=== PATIENT | male | born 1945 | race African-American/Black ===

== ENCOUNTER 2017-02-05 17:09 | Inpatient (IN) | payer MEDICARE ==
[~2017-02-05] VITALS: Ht 177.8 cm; Wt 77.4 kg
[2017-02-05 19:19] LABS: BASOPHILS 0.1 % (0-2); EOSINOPHILS 1.2 % (0-7); HEMATOCRIT 37.1 % (42.0-54.0); HEMOGLOBIN 12.2 g/dL (13.5-17.5); IMMATURE GRANULOCYTES 0.1 % (0-5); LYMPHOCYTES 15.1 % (15-50); MCH 27.9 pg (26.0-34.0); MCHC 32.9 g/dL (31.0-37.0); MCV 84.9 fL (80.0-100.0); MEAN PLATELET VOLUME 9.9 fL (7.4-10.4); MONOCYTES 6.1 % (2-11); NEUTROPHILS 77.4 % (40-80); PLATELET COUNT 163 10x3/uL (130-400); RBC 4.37 10x6/uL (4.20-6.10); RDW 15.3 % (11.5-14.5); WBC 8.5 10x3/uL (4.8-10.8)
[2017-02-05 19:33] LABS: APPEARANCE CLEAR (CLEAR); COLOR YELLOW (YELLOW)
[2017-02-05 19:34] LABS: BILIRUBIN NEGATIVE (NEGATIVE); GLUCOSE NEGATIVE (NEGATIVE); KETONE NEGATIVE (NEGATIVE); LEUKOCYTE ESTERASE NEGATIVE (NEGATIVE); NITRITE NEGATIVE (NEGATIVE); PROTEIN NEGATIVE (NEGATIVE); SPECIFIC GRAVITY 1.015 (1.005-1.020); UROBILINOGEN NORMAL (NORMAL)
[2017-02-05 20:00] LABS: ALBUMIN 3.6 g/dL (3.4-5.0); ANION GAP 16.1 mmol/L (8-16); BILIRUBIN - TOTAL 0.18 mg/dL (0.2-1.3); CALCIUM 8.7 mg/dL (8.5-10.1); CARBON DIOXIDE 26.5 mmol/L (21.0-32.0); CREATININE - SERUM 1.4 mg/dL (0.6-1.3); POTASSIUM - SERUM 4.6 mmol/L (3.5-5.1); PROTEIN - SERUM 7.7 g/dL (6.4-8.2)
[2017-02-05 20:01] LABS: UDS - AMPHET NEGATIVE QUAL (NEGATIVE); UDS - BARB NEGATIVE QUAL (NEGATIVE); UDS - BENZO NEGATIVE QUAL (NEGATIVE); UDS - COCAINE NEGATIVE QUAL (NEGATIVE); UDS - METH NEGATIVE QUAL (NEGATIVE); UDS - OPIATE NEGATIVE QUAL (NEGATIVE); UDS - PCP NEGATIVE QUAL (NEGATIVE); UDS - THC NEGATIVE QUAL (NEGATIVE)
--- NOTE | 2017-02-05 23:13 | NUR ---
NEW ADMIT TO DOCTOR CHEATHAM FROM [facility] EMERGENCY DEPARMENT. PATIENT TRANSPORTED TO [facility] ED FOR CONFUSION. HE HAS NEED ATTENPTING TO WALK AWAY FROM HIS HOME AND GO TO [place]. PATIENTS BROTHER "SARBJIT DIEGO" HAS TEMPORARY GUARDIANSHIP. PATIENT WAS RECIEVED TO ASSISTED IN WHEELCHAIR WITH STAFF AND FAMILY AT HIS SIDE. PATIENT IS VERY RISISTANT. STATIN HE WILL DO NOTHING THAT WE WANT HIM TO DO. REFUSING ASSESSMENTS. REFUSING MEDICATIONS. STATING THAT HE WILL LEAVE HERE ANY WAY THAT HE CAN. EXIT SEEKING. PATIENTS BROTHER SIGNED ALL ADMISSION COSENTS. PATIENT CONTINUES TO BE RESTLESS. ORIENTED TO UNIT. REDIRECT AND REORIENT NEEDED.
[2017-02-05] MEDS ORDERED: COUMADIN5 MG PO (23:53)
[2017-02-05] MEDS ORDERED: ARICEPT10 MG PO (23:53)
[2017-02-05] MEDS ORDERED: DEPAKOTE ER250 MG PO (23:53)
[2017-02-05] MEDS ORDERED: SEROQUEL100 MG PO (23:54)
[2017-02-05] MEDS ORDERED: FOLIC ACID1 MG PO (23:55)
[2017-02-05] MEDS ORDERED: FUROSEMIDE20 MG PO (23:56)
[2017-02-05] MEDS ORDERED: PROTONIX40 MG PO (23:56)
[2017-02-06 07:12] LABS: HEMOGLOBIN A1C 6.2 % (4.8-6.0)
[2017-02-06 07:24] LABS: CHOL - HDL RATIO 2.8 ratio (2.3-4.9); LDL-HDL RATIO 1.7 ratio (1.5-3.5); THYROID STIMULATING HORMONE 1.84 uIU/mL (0.36-3.74); VALPROIC ACID (DEPAKOTE) 35.9 ug/mL (50.0-100.0)
[2017-02-06 11:38] LABS: INR 2.17 (0.85-1.17); PROTIME 24.3 SECONDS (11.6-15.0)
--- NOTE | 2017-02-06 14:28 | NUR ---
PATIENT ROOMING THE HALLWAY. TRYING TO OPEN DOORS TO LEAVE. PATIENT DID TAKE MEDICATIONS FOR THIS NURSE AFTER NURSE EXPLAINED WHAT MEDICATIONS WERE FOR. STATED "I WILL TAKE MY MEDS JUST SO I CAN GET OUT OF HERE."
[2017-02-06 19:15] VITALS: BP 126/70
--- NOTE | 2017-02-06 20:07 | NUR ---
RECEIVED IN DINING AREA. SOCIALIZING WITH PEERS. NEGATIVE STATEMENTS ABOUT BEING IN PRISON. COOPERATIVE WITH VITALS. ENCOURAGE TO EXPRESS NEEDS. CONTINUES TO SOCIALIZE AT TIMES. CONTINUE PLAN OF CARE
[2017-02-06 21:17] VITALS: BMI 21.5
[2017-02-07 06:13] LABS: VITAMIN D 25 HYDROXY 26.1 ng/mL (30.0-100.0)
[2017-02-07 07:24] LABS: RAPID PLASMA REAGIN Non Reactive (Non Reactive)
--- NOTE | 2017-02-07 08:49 | NUR ---
PT ALERT, EATING BREAKFAST. PT AM MEDS ADMINSITERED. PT TOOK MEDS WITHOUT DIFFICULTY. PT DENIES NEEDS. WCTM.
[2017-02-07 10:18] LABS: FOLATE (FOLIC ACID) - SERUM >20.0 ng/mL (>3.0)
[2017-02-07 13:20] VITALS: BMI 21.5
[2017-02-07 18:33] VITALS: BP 127/86
--- NOTE | 2017-02-07 19:39 | NUR ---
RECEIVED IN DAYROOM. WALKING ABOUT DINING AREA. SOCIALIZING WITH PEERS. EXIT SEEKING AT TIMES. CALM AND COOPERATIVE WITH CARE AND ASSESSMENTS. REDIRECT AND REORIENT NEEDED. CONTINUES TO SOCIALIZE WITH PEERS. CONTINUE PLAN OF CARE
[2017-02-07 20:18] VITALS: BP 132/83
--- NOTE | 2017-02-08 04:34 | PN ---
PATIENT:ELIOT DIEGO MEDICAL RECORD: [id number] LOCATION:[facility] ADMISSION DATE: 02/05/17 PROGRESS NOTE DATE OF SERVICE: 02/07/2017 SUBJECTIVE: No new complaint. OBJECTIVE: The patient continually tries to elope and has to be redirected. He gives evidence of significant dementia. Dr. Worrell will be consulted. On exam, mood is euthymic. Affect is very shallow. Speech is terse. Content of thought is negative for overt psychosis. Sensorium shows no change. ASSESSMENT: No change in diagnosis. PLAN: 1. Neuropsychological testing. 2. Continue current medications. 3. Continue supportive therapy. TRANSINT:[id number] Voice Confirmation ID: [id number] DOCUMENT ID: [id number] WENDY LACEY III, MD at 0434 CC: [id number] DICTATION DATE: 02/07/17 1143 PODIATRIC PHYSICIAN: 02/07/17 1749 ADM IN [facility] [address] [place] [address]
--- NOTE | 2017-02-08 07:39 | NUR ---
B) PATIENT IS AWAKE AND ALERT, HE IS QUITE TALKATIVE, HE WANTS HIS COFFEE, THEN HE WANTS A CIGARETTE, THEN A BEER. HE IS RAMBLING ABOUT WALKING HOME. I) PROVIDE PRESCRIBED MEDS. R) PATIENT IS CALM AND COOPERATIVE, BUT HE WANTS TO GP BACK TO BED. P) CONTINUE POC.
[2017-02-08 08:00] VITALS: BP 119/77
--- NOTE | 2017-02-08 12:59 | NUR ---
PATIENT IS INTRUSIVE AND KEEPS TELLING PEOPLE TO "GET OUTTA THAT WHEEL CHAIR, IT'LL MAKE YOU LAZY" HE IS ASKING TO GO HOME AND WANTS COFFEE OR COKES ALL DAY LONG. HE IS EXIT SEEKING AND SITTING BY THE DOOR CURRENTLY.
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
[2017-02-08 19:45] VITALS: BP 121/59
--- NOTE | 2017-02-09 03:28 | NUR ---
B) Patient alert and oriented to self, restless and wandering around the day room, frequently asking for candy and sodas, intrusive with other patients. I) Administered schduled medications, redirected as needed, monitored for safety. R) Medication compliant, mild exit seeking. P) Continue plan of care, continue to monitor.
--- NOTE | 2017-02-09 05:41 | PN ---
PATIENT:ELIOT DIEGO MEDICAL RECORD: [id number] LOCATION:[facility] ADMISSION DATE: 02/05/17 PROGRESS NOTE DATE OF SERVICE: 02/08/2017 SUBJECTIVE: No new complaint. OBJECTIVE: Staff report the patient is very easily agitated. He is intrusive and requires redirection. He continues to exit-seek. On exam, mood is slightly irritable. Affect is very shallow. Speech is somewhat pressured and difficult to understand at times. Content of thought exhibits moderate paranoid delusional ideation. Sensorium shows no improvement. ASSESSMENT: No change in diagnosis. PLAN: 1. Maintain current medication. 2. Continue supportive therapy. TRANSINT:[id number] Voice Confirmation ID: [id number] DOCUMENT ID: [id number] WENDY LACEY III, MD at 0541 CC: [id number] DICTATION DATE: 02/08/17 1239 CHALK EXTRUDING MACHINE OPERATOR: 02/08/172023 ADM IN [facility] [address] [place] [address]
[2017-02-09 07:47] LABS: INR 2.69 (0.85-1.17); PROTIME 28.8 SECONDS (11.6-15.0)
[2017-02-09 08:37] VITALS: BP 121/74
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
--- NOTE | 2017-02-09 16:07 | NUR ---
LATE ENTRY FROM 02/08 SW MET WITH PT'S BROTHER SARBJIT TO DISCUSS PT'S CARE AND DISCHARGE PLANS. PT'S BROTHER VERBALIZED UNDERSTANDING OF CONVERSATION.
[2017-02-09 20:03] VITALS: BP 135/64
--- NOTE | 2017-02-10 01:55 | NUR ---
B) Patient alert and oriented to self, patient states that he is going back to [place] as soon as he gets out here, very confused, wanders at times, frequently asking for candy, sodas, and juice, I) Administered scheduled medications, PRN Ativan .05 mg PO and Haldol 2 mg PO given for anxiety, R) Medication compliant, intrusive with staff at times P) Continue plan of care.
[2017-02-10 15:57] VITALS: BP 135/86
--- NOTE | 2017-02-10 18:22 | NUR ---
PT IS RECEIVED SITTING IN CHAIR NEAR NURSE STATION. PT IS ALERT AND ORIENTED X3. PT DENIES ANXIETY OR DEPRESSION. NO HALLUCINATIONS OR DELUSIONS ARE NOTED OR REPORTED. PT HAS BEEN COOPERATIVE WITH STAFF AND IS COMPLIANT WITH MED'S AND CARE. NO AGGRESSION NOTED. PT HAS BEEN SOCIAL WITH STAFF AND PEERS. PT HAS WANDERED THE COSTELLO'S AND DOES EXIT SEEK AND FREQUENTLY CHECKS DOORS AND WINDOWS LOOKING FOR ANY OPENING. PT IS REDIRECTED NEEDED. SAFETY MEASURES ARE IMPLEMENTED. WILL CONTINUE TO MONITOR AND CONTINUE WITH PLAN OF CARE.
[2017-02-10 19:30] VITALS: BP 174/94
--- NOTE | 2017-02-10 20:20 | PN ---
PATIENT:ELIOT DIEGO MEDICAL RECORD: [id number] LOCATION:[facility] ADMISSION DATE: 02/05/17 PROGRESS NOTE DATE OF SERVICE: 02/09/2017 SUBJECTIVE: No new complaint. OBJECTIVE: The patient is more redirectable. He continues to ask about discharge. On exam, mood is for the most part euthymic. Affect is somewhat brittle. Speech is tangential and at times pressured. Content of thought is negative for clear cut psychosis. Sensorium shows no change. ASSESSMENT: No change in diagnosis. PLAN: 1. Neuropsychological testing today. 2. Continue current medications. 3. Continue supportive therapy. TRANSINT:[id number] Voice Confirmation ID: [id number] DOCUMENT ID: [id number] WENDY LACEY III, MD at 2020 CC: [id number] DICTATION DATE: 02/09/17 1141 HSE MANAGER: 02/09/17 1903 ADM IN [facility] [address] [place] [address]
--- NOTE | 2017-02-11 03:40 | NUR ---
B) Patient alert and oriented to self, wanders at times, mild exit seeking, intrusive and attention seeking, frequently asking for candy, sodas , or juice, I) Administered scheduled medications, monitored for safety and behaviors, R) Medication compliant, resting quietly in bed, P) Continue plan of care.
[2017-02-11 07:00] VITALS: BP 152/66
--- NOTE | 2017-02-11 14:25 | NUR ---
IS ORIENTED TO PERSON AND HOSPITAL.DENIES PAIN AND NEEDS.WANTS TO BE DISCHARGED SO HE CAN GO LIVE WITH HIS BROTHER IN [place].WALKS ABOUT UNIT LOOKING FOR WAY OUT.WILL CONTINUE WITH PLAN OF CARE,MONITOR FOR SAFETY AND CHANGES.
[2017-02-11 19:31] VITALS: BP 103/69
--- NOTE | 2017-02-11 20:30 | NUR ---
RECEIVED IN DAYROOM. SOCIALIZING WITH PEERS. CALM AND COOPERATIVE WITH CARE AND ASSESSMENTS. EXIT SEEKING AT TIMES. REDIRECT AND REORIENT NEEDED. MOVING ABOUT DINING AREA SOCIALIZING AT THIS TIME. CONTINUE PLAN OF CARE
[2017-02-12 06:22] LABS: INR 3.13 (0.85-1.17); PROTIME 32.4 SECONDS (11.6-15.0)
[2017-02-12 07:00] VITALS: BP 133/85
[2017-02-12 09:22] VITALS: BMI 21.5
--- NOTE | 2017-02-12 09:52 | PN ---
PATIENT:ELIOT DIEGO MEDICAL RECORD: [id number] LOCATION:[facility] ADMISSION DATE: 02/05/17 PROGRESS NOTE DATE OF SERVICE: 02/11/2017 SUBJECTIVE: No new complaint. OBJECTIVE: The patient continues to be somewhat restless, but does respond to redirection. On exam, mood is slightly irritable. Affect is shallow. Speech is poorly articulated and somewhat pressured. Content of thought exhibits moderate delusional ideation due to its deterioration. Sensorium is unimproved. ASSESSMENT: No change in diagnosis. PLAN: 1. Continue all current medications. 2. Continue supportive therapy. TRANSINT:[id number] Voice Confirmation ID: [id number] DOCUMENT ID: [id number] WENDY LACEY III, MD at 0952 CC: [id number] DICTATION DATE: 02/11/17619 TELECOM SALES CONSULTANT: 02/11/17 0911 ADM IN [place] [id number] [place] [address]
--- NOTE | 2017-02-12 14:08 | PSY ---
PATIENT NAME:ELIOT DIEGO MEDICAL RECORD: [id number] : 45 LOCATION:[facility] Yane[facility]0 ADMISSION DATE: 02/05/17 ACCOUNT: [id number] PSYCHIATRIC EVALUATION DATE OF EVALUATION: 02/06/17 IDENTIFYING DATA: The patient is 71 years old and he is admitted to the hospital on involuntary basis. CHIEF COMPLAINT: Confusion. HISTORY OF PRESENT ILLNESS: The patient is very impaired cognitively. He is mad about being here and he is not wanting to talk with me despite efforts made to establish a rapport. Unfortunately, he has no records here, so I am depending only on sketchy information, but this is the situation as I understand it. The patient has been living with his brother, why he lives with his brother, I do not know or understand. At any rate, the patient lives with his brother. He clearly is impaired cognitively and has been for some time. The brother has actually gotten guardianship of him from the court. The patient wants to go to [place]. He walks out of the house, walks off down the road and would not come back. He obviously cannot walk to [place]. He is impaired, confused and apparently, there is nothing or no one in [place] for him to go see or stay with. He becomes very agitated when it is explained to him why he cannot leave. PAST MEDICAL HISTORY: Significant for gastroesophageal reflux disease and hypertension. PAST PSYCHIATRIC HISTORY: Significant for dementia with the patient taking Aricept. The patient also on Seroquel. I presume for some behavior issues and he is currently at the time of admission, taking Depakote, I presume for the same reason. FAMILY HISTORY: The patient refuses to answer questions. ALLERGIES: No known drug allergies. CURRENT MEDICATIONS: Include Protonix, Depakote, folate, Lasix, Seroquel, Coumadin, Aricept. SOCIAL HISTORY: The patient is single. He lives with his brother. He denies a history of drug or alcohol abuse, but will not answer what kind of work he has done in the past. MENTAL STATUS EXAMINATION: The patient is awake, alert and oriented to person only. His mood is angry. His affect is constricted. Thought processes are disorganized. Memory, concentration and abstraction abilities cannot be tested secondary to his poor cooperation. He does deny that he is having auditory and visual hallucinations and he denies that he would seek to harm himself or others. ASSETS: Supportive family members. LIABILITIES: Limited insight. DIAGNOSTIC IMPRESSION: AXIS I: Senile dementia of the Alzheimer's type with behavioral disturbances. AXIS II: None. AXIS III: Hypertension. AXIS IV: Moderate stressors. AXIS V: Global assessment of functioning is 35. PLAN: At this time, the patient is admitted to the hospital for a comprehensive medical, psychological, and social evaluation. He will be treated with both mood stabilizing and memory enhancing medications. His long-term prognosis is guarded. TRANSINT:[id number] Voice Confirmation ID: [id number] DOCUMENT ID: [id number] ELIEL CHEATHAM MD at 1408 CC: [id number] DICTATION DATE: 02/06/17 1410 CABINET ASSEMBLER: 02/06/17 1458 ADM IN [address] [place] [address]
--- NOTE | 2017-02-12 16:00 | NUR ---
AWAKE AND ALERT. WANDERS ABOUT UNIT, LOOKING OUT WINDOWS. CONTINUALLY SAYS HE IS GOING HOME TO [place]. CALM AND COOPERATIVE WITH CARE AND ASSESSMENT. COMPLIANT WITH TAKING MEDICATIONS. IRRITATED AND AGITATED AFTER DR. CHEATHAM TALKED TO HIM ABOUT GOING TO CARE HOME. SAFETY PRECAUTIONS MAINTAINED. WILL CONTINUE PLAN OF CARE.
--- NOTE | 2017-02-12 19:46 | NUR ---
RECEIVED IN HALLWAY. WALKING ABOUT SOCIALIZING WITH HIS PEERS. NO EXIT SEEKING AT THIS TIME. CALM AND COOPERATIVE WITH CARE AND ASSESSMENTS. ENCOURAGE TO EXPRESS NEEDS. REDIRECT AND REORIENT NEEDED. CONTIUES TO WALK ABOUT HALLWAY SOCIALIZING. CONTINUE PLAN OF CARE
[2017-02-12 19:55] VITALS: BP 158/48
[2017-02-13 09:39] VITALS: BP 126/69
--- NOTE | 2017-02-13 10:00 | NUR ---
PATIENT IS ALERT AND MOVING SLOWLY TODAY. ATE ALL OF BREAKFAST. AFTER ADMINISTERING AM MEDS, HE LAID HIS HEAD ON TABLE, VERY LETHARGIC. ASSISTED TO RECLINER FOR A WHILE. HE FELL ASLEEP FOR 2 HR., THEN AWAKENED TO EAT LUNCH. HE HAD DIFFICULTY WITH STANDING UP OR WALKING. DR. CHEATHAM INFORMED AND MEDS ADJUSTED. DK COATS WITH PLAN OF CARE.
--- NOTE | 2017-02-13 12:55 | PN ---
PATIENT:ELIOT DIEGO MEDICAL RECORD: [id number] LOCATION:[facility] ADMISSION DATE: 02/05/17 PROGRESS NOTE DATE OF SERVICE: 02/12/2017 Psychiatric Progress Note SUBJECTIVE: The patient's case was discussed with staff. He has no new complaint. OBJECTIVE: The patient wants to go live in [place] in his own apartment. He says he can ride the bus there and then can find an apartment to live in. He has been living here in [place] with his younger brother, who actually has guardianship of him. The younger brother says he can handle [place] and is looking for long-term placement. The patient did score 21/30 on his testing from Dr. Worrell and certainly is not able to make reasonable informed consent decisions. ASSESSMENT: No change in diagnoses. PLAN: The patient is quite angry. I am going to prescribe some Klonopin to assist him with his irritability. Hopefully, this will also relieve what is probably an underlying anxiety that has been associated with his long-term abuse of alcohol. TRANSINT:[id number] Voice Confirmation ID: [id number] DOCUMENT ID: [id number] ELIEL CHEATHAM MD at 1255 CC: [id number] DICTATION DATE: 02/12/17 1426 TWENTY ONE DEALER: 02/12/17 1855 ADM IN [place] [id number] [place] [id number]
[2017-02-13 19:56] VITALS: BP 138/82
--- NOTE | 2017-02-13 19:59 | NUR ---
RECEIVED IN HALLWAY. MOVING ABOUT IN WHEELCHAIR. SOCIALIZING WITH PEERS AT TIMES. CONFUSED. NOT EXIT SEEKING AT THIS TIME. REDIRECT AND REORIENT NEEDED. CONTINUES TO SOCIALIZE WITH PEERS AT TIMES. CONTINUE PLAN OF CARE
[2017-02-14 06:59] LABS: INR 2.29 (0.85-1.17); PROTIME 25.3 SECONDS (11.6-15.0)
[2017-02-14 08:00] VITALS: BP 132/84
--- NOTE | 2017-02-14 09:54 | NUR ---
B) Rec'd pt. in dining room for b'fast, alert, confused, quiet mood, exit-seeking, stated that he was ready to go home. I) Meds admin as ordered, group activity provided. R) Farida meds well, present for group. Participated when cued. P) Cont plan of care including meds and group activity.
--- NOTE | 2017-02-14 10:50 | NUR ---
Nutrition Follow Up: Chart reviewed. Pt is eating 98% meal avg on a regular diet. +BM 02/13/17. Pt continues at low nutritional risk. Rec continue current diet. RD following.
--- NOTE | 2017-02-14 15:24 | PN ---
PATIENT:ELIOT DIEGO MEDICAL RECORD: [id number] LOCATION:[facility] ADMISSION DATE: 02/05/17 PROGRESS NOTE DATE OF SERVICE: 02/13/2017 SUBJECTIVE: The patient's case was discussed with staff. He has no new complaint. OBJECTIVE: The patient has been somewhat sedated. He is still exit seeking and difficult to redirect. ASSESSMENT: No change in diagnoses. PLAN: The patient's medications have been reviewed. I am going to reduce the dose of Klonopin secondary to this sedation. He will be monitored for clinical changes associated with its use. TRANSINT:[id number] Voice Confirmation ID: [id number] DOCUMENT ID: [id number] ELIEL CHEATHAM MD at 1524 CC: [id number] DICTATION DATE: 02/13/17 1303 TERMITE HELPER: 02/13/17 1940 ADM IN [place] [id number] [place] [id number]
[2017-02-14 19:47] VITALS: BP 141/81
--- NOTE | 2017-02-15 05:02 | NUR ---
B) Patient alert and oriented to self, intrusive at times, social and copperative, I) Adminstered scheduled medications, monitored for behaviors, R) Medication compliant, resting quietly in bed now, P) Continue plan of care.
[2017-02-15 10:01] VITALS: BP 130/90
--- NOTE | 2017-02-15 12:34 | PN ---
PATIENT:ELIOT DIEGO MEDICAL RECORD: [id number] LOCATION:[facility] ADMISSION DATE: 02/05/17 PROGRESS NOTE DATE OF SERVICE: 02/14/2017 SUBJECTIVE: The patient's case was discussed with staff. He has no new complaint. OBJECTIVE: The patient is significantly calmer today. He was a little oversedated yesterday and that was likely related to the Klonopin that I had given him. I reduced the dose yesterday. He is calmer and less sedated today, but I think he is a little unsteady on his feet and that of course is unacceptable and I think it still probably related to the Klonopin. ASSESSMENT: No change in diagnoses. PLAN: The patient will have his Klonopin reduced a little further. His long-term prognosis is guarded. Brief supportive and educational interventions were made. He will be going to a local fci as soon as these medications are adequately stabilized. TRANSINT:[id number] Voice Confirmation ID: [id number] DOCUMENT ID: [id number] ELIEL CHEATHAM MD at 1234 CC: [id number] DICTATION DATE: 02/14/17 1541 ELASTIC ATTACHER COVERSTITCH: 02/14/17 2227 ADM IN [place] [address] [place] [address]
--- NOTE | 2017-02-15 12:45 | NUR ---
B) PATIENT DID NOT WANT TO TAKE HIS AM MEDS TODAY, LUPE Naqvi ENCOURAGED HIM AND HE WAS COMPLIANT. HE IS STILL A BIT SEDATED AND HE HAS TO USE A WALKER. PATIENT IS CALM AND QUIET. HE HAS MENTIONED THAT HE IS NOT GOING TO TAKE ANYMORE MEDICINE. HE IS PRETTY GROGGY TODAY AND HAS STUMBLED WHEN WALKING. HE SAYS HE WANTS TO GO BACK TO [place]. I) PROVIDE PRESCRIBED MEDS. R) PATIENT IS COMPLIANT WITH MEDS, HE HAS NOT SHOWN ANY AGGRESSION TODAY. P) CONTINUE POC.
[2017-02-15 19:26] VITALS: BP 148/87
--- NOTE | 2017-02-16 03:03 | NUR ---
B) Patient is alert and oriented to self and being in a hospital, frequently states he wants to go to [place]. I) Administered scheduled medications, monitored for behaviors, R) Medication compliant, no aggression noted this shift, P) Continue plan of care.
[2017-02-16 06:41] LABS: INR 2.6 (0.85-1.17)
--- NOTE | 2017-02-16 08:10 | NUR ---
B) PATIENT IS AWAKE AND ALERT, HE IS CALM. HE ASKS FOR COFFEE OVER AND OVER. DID PROVIDE HIM SOME COFFEE. PATIENT IS AMBULATING INDEPENDENTLY. HE HAS POOR SHORT TERM MEMORY RECALL. HE KNOWS HIS NAME AND THAT HE IS IN THE HOSPITAL, HE IS REPETITIVE IN HIS QUESTIONS AND STATEMENTS. I) PROVIDE PRESCRIBED MEDS. R) PATIENT IS COMPLIANT WITH MEDS. P) CONTINUE POC.
[2017-02-16 08:45] VITALS: BP 133/88
--- NOTE | 2017-02-16 10:57 | NUR ---
LATE ENTRY 02-15 SW MET WITH PT'S BROTHER, SARBJIT, TO DISCUSS DISCHARGE PLANNING. PT'S BROTHER VOICED UNDERSTANDING OF DISCUSSION.
--- NOTE | 2017-02-16 12:46 | PN ---
PATIENT:ELIOT DIEGO MEDICAL RECORD: [id number] LOCATION:[facility] ADMISSION DATE: 02/05/17 PROGRESS NOTE DATE OF SERVICE: 02/15/2017 SUBJECTIVE: The patient's case was discussed with staff. He has no new complaint. OBJECTIVE: The patient is angry and saying that he thinks his medicines are making him sleepy and he will not take them anymore. He denies that he would seek to harm himself or others. He says he wants to go back to [place]. ASSESSMENT: No change in diagnoses. PLAN: The patient is calm, but frustrated. I am going to discontinue his Klonopin, which was being tapered because of some sedation issues. I hope he will not become agitated or even aggressive with its discontinuation, but he is not going to take the medication, which is fine and I will stop it and hopefully there will not be an issue. Regarding his going to [place], that is not going to happen. His brother has guardianship and wants him placed in a fpc here. TRANSINT:[id number] Voice Confirmation ID: [id number] DOCUMENT ID: [id number] ELIEL CHEATHAM MD at 1246 CC: [id number] DICTATION DATE: 02/15/17 1305 AIR POLLUTION ANALYST: 02/15/17 1855 ADM IN [place] [id number] [place] [address]
--- NOTE | 2017-02-16 13:31 | NUR ---
B) PATIENT IS CONFUSED, HE HAS ASKED STAFF WHEN CAN HE GO HOME TODAY. HE SAID "IF I TAKE MY MEDICINE DOES THAT MEAN I AM GOING HOME" EXPLAINED TO HIM THAT HE IS NOT ABLE TO GO HOME TODAY. HE AMBULATES WITH A WALKER AND HE IS UNSTEADY TODAY. HE HAS NOT SHOWN ANY AGGRESSION, BUT HE HAS TRIED ALL THE DOORS AND A COUPLE WINDOWS. HE SAYS "I WANT TO GO BACK TO [place]." I) PROVIDE PRESCRIBED MEDS. R) PATIENT IS COMPLIANT WITH MEDS, BUT HE WAS HESITANT TO TAKE THEM, LUPE Naqvi AND VIVI PEREIRA T TALKED HIM INTO TAKING THEM. P) CONTINUE POC.
[2017-02-16 19:30] VITALS: BP 165/89
--- NOTE | 2017-02-17 03:13 | NUR ---
B) Patient alert and oriented to self, very confused and disoriented, wanders at times, intrusive and looking for snacks and sweets frequently, I) Administered scheduled medications, monitored for safety, redirected as needed, R) Medication compliant, no aggression noted, P) Continue plan of care.
[2017-02-17 08:42] VITALS: BP 133/83
--- NOTE | 2017-02-17 09:50 | PN ---
PATIENT:ELIOT DIEGO MEDICAL RECORD: [id number] LOCATION:[facility] ADMISSION DATE: 02/05/17 PROGRESS NOTE DATE OF SERVICE: 02/16/2017 SUBJECTIVE: The patient's case was discussed with staff. He has no new complaint. OBJECTIVE: The patient is oriented partially. His mood is flat. His affect is generally appropriate. Thought processes are circumstantial. Memory, concentration and abstraction abilities are moderately impaired and he denies any intent to harm himself or others as well as overt psychotic symptoms. ASSESSMENT: No change in diagnoses. PLAN: Brief supportive and educational interventions were made. The patient's long-term prognosis is guarded. TRANSINT:[id number] Voice Confirmation ID: [id number] DOCUMENT ID: [id number] ELIEL CHEATHAM MD at 0950 CC: [id number] DICTATION DATE: 02/16/17 1319 BOTTOM STOP ATTACHER: 02/16/17 1630 ADM IN [place] [id number] [place] [address]
--- NOTE | 2017-02-17 11:58 | NUR ---
B) PATIENT IS AWAKE AND ALERT, HE IS WALKING BETTER TODAY NOT USING A WALKER, HE ASKS FOR COOKIES, COKES AND COFFEE CONSTANTLY, HE HAS GONE INTO THE BATHROOM MULTIPLE TIMES THIS AM. HE IS WALKING AROUND, HE IS BORED AND ASKING TO GO HOME TO [place]. PATIENT HAS POOR SHORT TERM MEMORY RECALL HE HAS BEEN ASKING THE SAME QUESTION OVER AND OVER. I) PROVIDE PRESCRIBED MEDS. R) PATIENT IS COMPLIANT WITH MEDS AND PARTICIPATES IN ACTIVITIES. P) CONTINUE POC.
[2017-02-17 19:30] VITALS: BP 148/91
--- NOTE | 2017-02-18 05:08 | NUR ---
B] PATIENT ALERT AND ORIENTED TO SELF AND BEING IN A HOSPITAL, INTRUSIVE AND IMPATIENT WITH CARE, I] ADMINISTERED SCHEDULED MEDICATIONS, REDIRECTED FREQUENTLY, R] MEDICATION COMPLIANT, NEEDY AND ATTENTION SEEKING, P] CONTINUE PLAN OF CARE.
[2017-02-18 07:00] VITALS: BP 136/86
[2017-02-18 08:00] VITALS: Ht 177.8 cm; Wt 77.4 kg
--- NOTE | 2017-02-18 12:48 | PN ---
PATIENT:ELIOT DIEGO MEDICAL RECORD: [id number] LOCATION:[facility] ADMISSION DATE: 02/05/17 PROGRESS NOTE DATE OF SERVICE: 02/17/2017 SUBJECTIVE: The patient's case was discussed with staff. He has no new complaint. OBJECTIVE: The patient is in good behavioral control with limited insight about his condition. He tolerates his medicines well. He has not been aggressive. His brother is seeking placement for him and I believe we are waiting on the office of long-term care. Unfortunately, we were now on a 3-day weekend, so it may be as long as Sunday before he can be transitioned to the [facility]. I am going to check a Depakote level. I am pleased that he is under much better behavioral control. He still is obviously not happy about going to the [facility], but he is not nearly as argumentative and he had previously been repeatedly asking the same questions over and over about why he has to go there and was never satisfied more accurately just simply could not remember the answers that he was given. TRANSINT:[id number] Voice Confirmation ID: [id number] DOCUMENT ID: [id number] ELIEL CHEATHAM MD at 1248 CC: [id number] DICTATION DATE: 02/17/17 1010 PORTABLE TRACK LINE MARKER: 02/17/17 1421 ADM IN [id number] [place] [address]
--- NOTE | 2017-02-18 17:39 | NUR ---
IS ORIENTED TO SELF AND HOSPITAL.COMPLIANT WITH MEDS.STATES" I MIGHT GO HOME TODAY THEN IM GOING TO [place] TO LIVE WITH MY BROTHER."ALSO STATES "IF I TAKE MY MEDS HE WILL LET ME GO HOME,BE SURE HE KNOWS I TAKE MY MEDS."IS AMBULATORY,AND SITS FOR LONG TIME LOOKNG OUT WINDOW.WILL CONTINUE WITH PLAN OF CARE,MONITOR FOR SAFETY AND CHANGES.WHEN FAMLY VISITS BECOMES AGGITATED BUT WHEN THEY LEAVE HE CALMS DOWN.
[2017-02-18 19:30] VITALS: BP 135/78
--- NOTE | 2017-02-18 23:16 | NUR ---
B) Continues to talk about going back to [place]. Claims his brother is taking him there tomorrow. States he is a half Holiness and is brother is a full Holiness. Wanders in the hallway. States he came here for [facility] Slade. I) Administer medications as ordered, redirect and reorient PRN. R) Oriented x [address]. No aggression, com pliant with medications. Continues to watch doors for people entering and exiting. P) Continue to monitor per plan of care.
[2017-02-19 07:00] VITALS: BP 132/86
[2017-02-19 07:17] LABS: INR 3.35 (0.85-1.17); PROTIME 34.3 SECONDS (11.6-15.0)
--- NOTE | 2017-02-19 11:08 | PN ---
PATIENT:ELIOT DIEGO MEDICAL RECORD: [id number] LOCATION:[facility] ADMISSION DATE: 02/05/17 PROGRESS NOTE DATE OF SERVICE: 02/18/2017 SUBJECTIVE: The patient's case was discussed with staff. He has no new complaint. OBJECTIVE: The patient is in good behavioral control. He has limited insight about his condition. He generally tolerates his medicines well. ASSESSMENT: No change in diagnoses. PLAN: Brief supportive and educational interventions were made. The patient's long-term prognosis is guarded. TRANSINT:[id number] Voice Confirmation ID: [id number] DOCUMENT ID: [id number] ELIEL CHEATHAM MD at 1108 CC: [id number] DICTATION DATE: 02/18/17 1246 PROPULSION MOTOR AND GENERATOR REPAIRER: 02/18/17 2017 ADM IN [address] [place] [address]
--- NOTE | 2017-02-19 11:22 | NUR ---
AFTER PATIENT SPOKE WITH DR. CHEATHAM DURING ROUNDS, HE STARTED HITTING WALL AND SHAKING DOOR HANDLE. PRN GIVEN ODERED, HALDOL 2 MG AND ATIVAN 0.5 MG IM IN RIGHT DELTOID AFTER LOTS OF PERSUADING AND SECURITY ARRIVED.
[2017-02-19 19:54] VITALS: BP 144/86
--- NOTE | 2017-02-19 20:53 | NUR ---
RECEIVED IN DAYROOM. SITTING IN CHAIR. SOCILZING WITH PEERS. CALM AND COOPERATIVE WITH STAFF AND PEERS. ENCOURAGE TO EXPRESS NEEDS AND FEELING. REDIRECT AND REORIENT NEEDED. CONTINUE PLAN OF CARE
[2017-02-20 05:47] LABS: INR 2.88 (0.85-1.17); PROTIME 30.4 SECONDS (11.6-15.0)
[2017-02-20 08:00] VITALS: BP 128/89
--- NOTE | 2017-02-20 09:00 | NUR ---
AWAKE AND ALERT THIS AM. ASSESSMENT COMPLETED. COOPERATIVE WITH TAKING PRESCRIBED MEDICATIONS. WANDERS AROUND DAYROOM AND DINING ROOM. SOCIALIZES WITH STAFF AND PEERS. NO AGGRESSIVE BEHAVIOR NOTED. WILL CONTINUE PLAN OF CARE.
--- NOTE | 2017-02-20 10:17 | PN ---
PATIENT:ELIOT DIEGO MEDICAL RECORD: [id number] LOCATION:[facility] ADMISSION DATE: 02/05/17 PROGRESS NOTE DATE OF SERVICE: 02/19/2017 SUBJECTIVE: The patient's case was discussed with staff. He has no new complaint. OBJECTIVE: The patient is very angry and says he wants to go to [place]. It has been explained to him that his brother has guardianship of him and he just flatly refuses to accept this. He is clearly very impaired cognitively. He denies intent to harm himself or others. He just simply wants to live independently in [place]. We have been through this a number of times and I have explained to him in a rational way why I do not think that is practical. He just simply does not accept it. I did not explain this again to him today as he is viewing it as provocative. ASSESSMENT: No change in diagnoses. PLAN: Current medicines have been reviewed. I am going to give him a scheduled dose of Seroquel secondary to his anger, agitation and thought disorganization. His long-term prognosis is guarded. TRANSINT:[id number] Voice Confirmation ID: [id number] DOCUMENT ID: [id number] ELIEL CHEATHAM MD at 1017 CC: [id number] DICTATION DATE: 02/19/17 1400 NUDE MODEL: 02/19/17 1629 ADM IN [address] [id number] [place] [address]
--- NOTE | 2017-02-20 20:11 | NUR ---
RECEIVED IN DAYROOM. SITTING IN CHAIR. WALKS ABOUT AT TIMES. RK;M AND COOPERATIVE WITH CARE AND ASSESSMENTS. NOT EXIT SEEKING AT THIS TIME. REDIRECT AND REORIENT NEEDED. ENCOURAGE TO EXPRESS NEEDS. CONTINUES TO SIT QUIETLY AT THIS TIME. CONTINUE PLAN OF CARE
[2017-02-21 07:58] VITALS: BP 136/90
--- NOTE | 2017-02-21 12:49 | PN ---
PATIENT:ELIOT DIEGO MEDICAL RECORD: [id number] LOCATION:[facility] ADMISSION DATE: 02/05/17 PROGRESS NOTE DATE OF SERVICE: 02/20/2017 SUBJECTIVE: The patient's case was discussed with staff. He has no new complaint. OBJECTIVE: The patient denies intent to harm himself or others. He is still having significant aggressive behaviors. He has almost no insight about his situation. ASSESSMENT: No change in diagnoses. PLAN: The patient will be taken off of Seroquel, which is causing some significant sedation. I am going to start him on Geodon for its thought organizing, antipsychotic and antiaggressive effects. His long-term prognosis is guarded. TRANSINT:[id number] Voice Confirmation ID: [id number] DOCUMENT ID: [id number] ELIEL CHEATHAM MD at 1249 CC: [id number] DICTATION DATE: 02/20/17 1032 SPRAYER LEATHER: 02/20/17 1046 ADM IN [id number] [place] [address]
--- NOTE | 2017-02-21 14:42 | NUR ---
B) PATIENT IS AWAKE AND ALERT AND ORIENTED TO PERSON AND PLACE. HE IS AMBULATORY, HE IS ALWAYS TALKING ABOUT GOING BACK [place], HE SAID "I'M GOING HOME TODAY, I THINK I'LL GET AND ADOPT A COUPLE KIDS." PATIENT IS IN A PLEASANT MOOD, HE IS NOT EXIT SEEKING, BUT HE SAYS HE IS READY TO GO. I) PROVIDE PRESCRIBED MEDS. R) PATIENT IS COMPLIANT WITH MEDS AND PARTICIPATES IN SOME ACTIVITIES. HE IS JOKING WITH STAFF TODAY. P) CONTINUE POC.
[2017-02-21 19:55] VITALS: BP 142/65
--- NOTE | 2017-02-22 00:34 | NUR ---
B) Patient alert and oriented to self and hospital, restless and wanders at times, asking for sodas and candy, or for coffee, I) Administered scheduled medications, monitored for safety, R) medication compliant, intrusive at times, asks for something everytime he see you, P) Continue plan of care.
[2017-02-22 06:22] LABS: INR 2.4 (0.85-1.17); PROTIME 26.2 SECONDS (11.6-15.0)
[2017-02-22 08:23] VITALS: BP 117/79
--- NOTE | 2017-02-22 13:41 | NUR ---
PATIENT IS GETTING HIMSELF ALL UPSET. HE WANTS TO GO HOME HE KEEPS SAYING "I HAVE TO GO HOME AND PAY MY RENT, FIND MY DOG AND CAT" HE IS GETTING ANGRY AND MAKING STATEMENTS "WELL I AM GOING TO RUN THEN" HAVE ATTEMPTED TO REDIRECT HIM, TRIED TO REDIRECT AND LET HIM KNOW THAT HE IS NOT ABLE TO GO BECAUSE HIS MEDICATION IS BEING ADJUSTED AND THE IS NOT QUITE READY FOR HIM TO GO YET AND BESIDES REMEMBER YOU ARE GOING TO [facility] NEXT WEEK. PATIENT UNFORTUNATELY HAS FORGOTTEN BECAUSE HE KEEPS SAYING "I WANT TO GO HOME I HAVE STUFF I NEED TO DO" PATIENT IS NOT REDIRECTING, HE DID NOT WANT TO TAKE THE HALDOL I GOT FROM THE [facility], BUT GOT HIM A COKE AND AN ICE CREAM AND HE RELUCTANTLY TOOK IT. PROVIDED HALDOL 2 MG PO.
--- NOTE | 2017-02-22 14:41 | NUR ---
Nutrition Monitoring and Eval: Chart reviewed. Pt is eating 98% meal avg on a regular diet. +BM 02/21/17. Labs reviewed. Meds noted including Lasix. Pt continues at low nutritional risk. Rec continue current diet. RD following.
--- NOTE | 2017-02-22 15:35 | NUR ---
B) PATIENT IS AWAKE AND ALERT, HE IS MORE CONFUSED, HAS GARBLED SPEECH, BUT HE HAS WANTED TO GO HOME THIS AFTERNOON. I) PROVIDE PRESCRIBED MEDS. R) PATIENT IS COMPLIANT WITH MEDS. P) CONTINUR POC.
[2017-02-22 19:34] VITALS: BP 149/102
--- NOTE | 2017-02-23 02:27 | NUR ---
B) Patient is alert and oriented to self, confused and wanders at times, intrusive and attention seeking, I) Administered scheduled medications, monitored for safety, R) medication compliant, P) Continue plan of care.
[2017-02-23 07:53] VITALS: BP 141/80
--- NOTE | 2017-02-23 07:53 | PN ---
PATIENT:ELIOT DIEGO MEDICAL RECORD: [id number] LOCATION:[facility] ADMISSION DATE: 02/05/17 PROGRESS NOTE DATE OF SERVICE: 02/22/2017 SUBJECTIVE: No new complaint. OBJECTIVE: The patient is now on Depakote. He is tolerating this and affective control seems to be improved. Placement is pending for early next week. On exam, mood more or less euthymic. Affect is bland. Speech is somewhat tangential. Content of thought is negative for overt psychosis. Sensorium unchanged. ASSESSMENT: No change in diagnosis. PLAN: 1. Maintain current medication. 2. Continue supportive therapy. TRANSINT: Voice Confirmation ID: [id number] DOCUMENT ID: [id number] WENDY LACEY III, MD at 0753 CC: [id number] DICTATION DATE: 02/22/17 1205 SOLDERER ASSEMBLER: 02/22/17 1302 ADM IN [id number] [place] [address]
--- NOTE | 2017-02-23 13:52 | NUR ---
B) PATIENT IS AWAKE AND ALERT AND ORIENTED TO SELF, HE SOMETIMES KNOWS PLACE AND TIME. HE CONSTANTLY TALKS ABOUT [place], HE ASKS FOR COFFEE, CANDY AND COOKIES OR SUGAR MUCH OF THE DAY. HIS SPEECH IS GARBLED AND HE IS FORT INDEPENDENCE. PATIENT AMBULATES WELL, HE HAS NOT BEEN AGITATED TODAY. I) PROVIDE PRESCRIBED MEDS. R) PATIENT IS COMPLIANT WITH MEDS AND UNIT MILIE[facility]. P) CONTINUE POC.
[2017-02-23 19:51] VITALS: BP 141/84
--- NOTE | 2017-02-23 21:40 | PN ---
PATIENT:ELIOT DIEGO MEDICAL RECORD: [id number] LOCATION:[facility] ADMISSION DATE: 02/05/17 PROGRESS NOTE DATE OF SERVICE: 02/23/2017 SUBJECTIVE: The patient states that he wants to go to [place]. OBJECTIVE: The patient has again shown some episodic combativeness. He did receive Haldol p.r.n. last night. On exam today, mood is more euthymic. Affect is bland. Speech is repetitive. Content of thought is unchanged. Sensorium unchanged. ASSESSMENT: No change in diagnosis. PLAN: 1. Adjust medications as indicated. 2. Continue supportive therapy. TRANSINT:[id number] Voice Confirmation ID: [id number] DOCUMENT ID: [id number] WENDY LACEY III, MD at 2140 CC: [id number] DICTATION DATE: 02/23/17 1234 CONTRACT TECHNICAL WRITER: 02/23/17 1335 ADM IN [id number] [place] [address]
--- NOTE | 2017-02-24 03:42 | NUR ---
B) Patient is alert and oriented to self, calm and cooperative, intrusive at times, bored and needy at times. I) Administered scheduled medications, redirected as needed, monitored for safety. R) Medication compliant, friendly and social with staff and peers. P) Continue plan of care.
[2017-02-24 08:16] LABS: INR 2.5 (0.85-1.17); PROTIME 27.1 SECONDS (11.6-15.0)
[2017-02-24 10:20] VITALS: BP 121/90
--- NOTE | 2017-02-24 11:50 | NUR ---
ASSESSMENT COMPLETED. CALM AND COOPERATIVE WITH CARE. AMBULATES INDEPENDENTLY. FREQUENTLY ASKS FOR COKE, COFFEE,CANDY AND COOKIES. ADMINISTERED PRESCRIBED MEDICATIONS. COMPLIANT WITH TAKING MEDICATIONS. CONTINUE PLAN OF CARE.
[2017-02-24 19:30] VITALS: BP 153/89
--- NOTE | 2017-02-25 04:19 | NUR ---
B) Patient alert nad oriended t self, intrusive and attention seeking at times, calm and cooperative with staff. I) Administered scheduled medications, monitored for safety. R) Medications compliant. restless and hyperverbal at times, impatient, P) Continue plan of care.
[2017-02-25 07:00] VITALS: BP 115/77
--- NOTE | 2017-02-25 18:24 | NUR ---
ORIENTED TO PERSON AND HOSPITAL.STATES "IM GETTING OUT OF [place] TODAY,IM GOING TO [place]." REMINDED HIM HE HAS TO WAUT FOR DOCTOR TO DISCHARGE HIM.TALKS A LOT ABOUT GOING TO [place] TO LIVE.AMBULATES FREQUENTLY WITH STEADY GAIT.NO EXIT SEEKING OBSERVED.NO AGGRESSION OBSERVED.COMPLIANT WITH MEDS AND STAFF.WILL CONTINUE WITH PLAN OF CARE,MONITOR FOR CHANGES AND SAFETY.
[2017-02-25 19:47] VITALS: BP 126/76
--- NOTE | 2017-02-26 00:22 | NUR ---
RECEIVED IN HALLWAY. STANDING OUTSIDE OF NURSES STATION. SOCIAL WITH STAFF AND PEERS. CALM AND COOPERATIVE WITH CARE AND ASSESSMENTS. NOT EXIT SEEKING THIS PM. ENCOURAGE TO EXPRESS NEEDS. RESTING EYES CLOSED AT THIS TIME. CONTINUE PLAN OF CARE
[2017-02-26 07:34] LABS: INR 2.89 (0.85-1.17); PROTIME 30.5 SECONDS (11.6-15.0)
[2017-02-26 08:30] VITALS: BP 119/75
--- NOTE | 2017-02-26 09:48 | PN ---
PATIENT:ELIOT DIEGO MEDICAL RECORD: [id number] LOCATION:[facility] ADMISSION DATE: 02/05/17 PROGRESS NOTE DATE OF SERVICE: 02/21/2017 SUBJECTIVE: The patient's case was discussed with staff. He has no new complaint. OBJECTIVE: The patient is calm and cooperative today. He did not mention going to [place] and I did not bring it up. He is clearly impaired cognitively. He has rather limited insight about his situation, but he certainly is pleasant at this point. ASSESSMENT: No change in diagnoses. PLAN: Current medicines have been reviewed and will be maintained. Long-term prognosis is guarded. TRANSINT:[id number] Voice Confirmation ID: [id number] DOCUMENT ID: [id number] ELIEL CHEATHAM MD at 0948 CC: [id number] DICTATION DATE: 02/21/17 1300 SCENARIO WRITER: 02/21/17 1435 ADM IN [id number] [place] [address]
[2017-02-26] MEDS ORDERED: DEPAKOTE500 MG PO (10:03)
[2017-02-26] MEDS ORDERED: GEODON20 MG PO (10:04)
[2017-02-26] MEDS ORDERED: VITAMIN B-121000 MCG PO (10:04)
[2017-02-26] MEDS ORDERED: VITAMIN D5000 UNIT PO (10:04)
--- NOTE | 2017-02-26 11:06 | NUR ---
PT IS RESTLESS AND EASILY AGITATED AT TIMES. PT WANTS TO USE THE PHONE TO CALL HIS BROTHER. EDUCATED PT ON PHONE TIMES. NO PHYSICAL AGGRESSION NOTED. MEDICATIONS GIVEN ORDERED. FALL PRECAUTIONS MAINTAINED. WILL CONTINUE TO MONITOR AND CONTINUE WITH PLAN OF CARE.
--- NOTE | 2017-02-26 11:26 | PN ---
PATIENT:ELIOT DIEGO MEDICAL RECORD: [id number] LOCATION:[facility] ADMISSION DATE: 02/05/17 PROGRESS NOTE DATE OF SERVICE: 02/25/2017 SUBJECTIVE: No new complaint. OBJECTIVE: The patient continues to be somewhat restless and talks of leaving. Discharge plans are pending. On exam, mood more or less euthymic. Affect is rather shallow. Speech is repetitive. Content of thought negative for overt psychosis. Sensorium is unchanged. ASSESSMENT: No change in diagnoses. PLAN: 1. Maintain current medication. 2. Continue supportive therapy. TRANSINT:[id number] Voice Confirmation ID: [id number] DOCUMENT ID: [id number] WENDY LACEY III, MD at 1126 CC: [id number] DICTATION DATE: 02/25/172151 WIRE BENDER HAND: 02/26/17 0025 ADM IN [facility] [address] [place] [address]
[2017-02-26 19:25] VITALS: BP 122/82
--- NOTE | 2017-02-26 20:04 | NUR ---
RECEIVED IN HALLWAY. WALKING ABOUT SOCIALIZING WITH STAFF AND PEERS. CALM AND COOPERATIVE WITH CARE AND ASSESSMENTS. ENCOURAGE TO EXPRESS NEEDS. CONTINUES TO SOCIALIZE WITH PEERS. CONTINUE PLAN OF CARE
[2017-02-27 05:44] LABS: PROTIME 25.5 SECONDS (11.6-15.0)
[2017-02-27 05:50] LABS: INR 2.31 (0.85-1.17)
[2017-02-27 07:00] VITALS: BP 129/80
--- NOTE | 2017-02-27 07:50 | PN ---
PATIENT:ELIOT DIEGO MEDICAL RECORD: [id number] LOCATION:[facility] ADMISSION DATE: 02/05/17 PROGRESS NOTE DATE OF SERVICE: 02/26/2017 SUBJECTIVE: The patient's case was discussed with staff. He has no new complaint. OBJECTIVE: The patient is in good behavioral control, but has very limited insight about his situation. He accepts that he is going to go to the [place] [facility] and he accepts that his brother has guardianship and is making him do this. However, he does say that he is been going to fight this and will eventually get back to [place]. I think that this is the patient's way of simply processing unpleasant situation that certainly healthy and appropriate versus how he was a week ago. ASSESSMENT: No change in diagnoses. PLAN: I anticipate the patient can be transitioned out of the hospital soon. His long-term prognosis is guarded. Brief supportive and educational interventions were made. TRANSINT:[id number] Voice Confirmation ID: [id number] DOCUMENT ID: [id number] ELIEL CHEATHAM MD at 0750 CC: [id number] DICTATION DATE: 02/26/17 1002 ANIMAL TAXONOMIST: 02/26/17 1634 ADM IN [facility] [address] [place] [address]
--- NOTE | 2017-02-27 11:42 | NUR ---
ASSESSMENT COMPLETED. CALM AND COOPERATIVE WITH CARE. NO AGGRESSION NOTED. MEDICATIONS GIVEN PRESCRIBED WITHOUT DIFFICULTY. FALL PRECAUTIONS MAINTAINED. WILL CONTINUE TO MONITOR. PATIENT IS SET TO DISCHARGE TODAY. ALL DISCHARGE PAPERWORK REVIEWED AND FAXED TO [facility]. ALL BELONGINGS BAGGED AND ACCOUNTED FOR.
--- NOTE | 2017-02-27 12:05 | NUR ---
PT WAS MEDICATED WITH ATIVAN 0.5G D/T ANXIETY UPON DISCHARGE WELL WARFARIN 4 MG PER ORDERS.
--- NOTE | 2017-02-28 15:29 | PN ---
PATIENT:ELIOT DIEGO MEDICAL RECORD: [id number] LOCATION:[facility] ADMISSION DATE: 02/05/17 PROGRESS NOTE DATE OF SERVICE: 02/27/2017 SUBJECTIVE: The patient's case was discussed with staff. He has no new complaint. OBJECTIVE: The patient denies intent to harm himself or others. He generally tolerates his medicines well. His eye contact is fair. ASSESSMENT: No change in diagnoses. PLAN: Current medicines and therapies have been reviewed and will be maintained. Long-term prognosis is guarded. TRANSINT:[id number] Voice Confirmation ID: [id number] DOCUMENT ID: [id number] ELIEL CHEATHAM MD at 1529 CC: [id number] DICTATION DATE: 02/27/17 1431 VP SECURITY: 02/27/171943 DIS IN 02/27/17 [facility] [address] [place] [address]
== END 2017-02-27 12:45 | DRG 57 ==
LOC: D.ER 17:09 → D.PSYCH 22:57
PROVIDERS: Family Medicine; Physician Assistant Medical; ADMIT Psychiatry & Neurology Psychiatry
DX: G30.1 Alzheimer's disease with late onset (principal); F02.81 Dementia in other diseases classified elsewhere, unspecified severity, with behavioral disturbance; F10.27 Alcohol dependence with alcohol-induced persisting dementia; I10 Essential (primary) hypertension; K21.9 Gastro-esophageal reflux disease without esophagitis; E53.8 Deficiency of other specified B group vitamins; E55.9 Vitamin D deficiency, unspecified; M25.512 Pain in left shoulder; T45.515A Adverse effect of anticoagulants, initial encounter; Z72.0 Tobacco use

== ENCOUNTER 2017-03-08 09:29 | Inpatient (IN) | payer MEDICARE ==
[~2017-03-08 09:29] MED LIST: ARICEPT10 MG PO; COUMADIN5 MG PO; DEPAKOTE ER250 MG PO; DEPAKOTE500 MG PO; FOLIC ACID1 MG PO; FUROSEMIDE20 MG PO; GEODON20 MG PO; PROTONIX40 MG PO; SEROQUEL100 MG PO; VITAMIN B-121000 MCG PO; VITAMIN D5000 UNIT PO
[2017-03-08 10:24] LABS: BASOPHILS 0.1 % (0-2); EOSINOPHILS 0.9 % (0-7); HEMATOCRIT 37.1 % (42.0-54.0); HEMOGLOBIN 12.6 g/dL (13.5-17.5); IMMATURE GRANULOCYTES 0.2 % (0-5); LYMPHOCYTES 9.8 % (15-50); MCH 28.3 pg (26.0-34.0); MCV 83.4 fL (80.0-100.0); MEAN PLATELET VOLUME 9.8 fL (7.4-10.4); MONOCYTES 14.1 % (2-11); NEUTROPHILS 74.9 % (40-80); PLATELET COUNT 181 10x3/uL (130-400); RBC 4.45 10x6/uL (4.20-6.10); RDW 15.4 % (11.5-14.5); WBC 9.8 10x3/uL (4.8-10.8)
[2017-03-08 10:40] LABS: ALBUMIN 3.3 g/dL (3.4-5.0); ANION GAP 10.8 mmol/L (8-16); BILIRUBIN - TOTAL 0.34 mg/dL (0.2-1.3); CARBON DIOXIDE 28.8 mmol/L (21.0-32.0); CREATININE - SERUM 1.4 mg/dL (0.6-1.3); POTASSIUM - SERUM 4.6 mmol/L (3.5-5.1); PROTEIN - SERUM 8.2 g/dL (6.4-8.2)
[2017-03-08 11:13] LABS: UDS - AMPHET NEGATIVE QUAL (NEGATIVE); UDS - BARB NEGATIVE QUAL (NEGATIVE); UDS - BENZO NEGATIVE QUAL (NEGATIVE); UDS - COCAINE NEGATIVE QUAL (NEGATIVE); UDS - OPIATE NEGATIVE QUAL (NEGATIVE); UDS - PCP NEGATIVE QUAL (NEGATIVE); UDS - THC NEGATIVE QUAL (NEGATIVE)
[2017-03-08 11:17] LABS: APPEARANCE CLEAR (CLEAR); BILIRUBIN NEGATIVE (NEGATIVE); COLOR YELLOW (YELLOW); GLUCOSE NEGATIVE (NEGATIVE); KETONE NEGATIVE (NEGATIVE); NITRITE NEGATIVE (NEGATIVE); PROTEIN NEGATIVE (NEGATIVE); UROBILINOGEN NORMAL (NORMAL)
[2017-03-08 11:18] LABS: BACTERIA FEW /hpf (NONE SEEN); EPITHELIAL CELLS 0-5 /hpf (0-5); MUCUS <1+ /lpf (NONE SEEN); WHITE CELLS - URINE 0-5 /hpf (0-5)
--- NOTE | 2017-03-08 12:23 | NUR ---
PATIENT ARRIVES IN A W/C ESCORTED BY TWO ER STAFF NURSES. PATIENT IS ABLE TO AMBULATE. ON ARRIVAL ASKED PATIENT "WHAT HAPPENED FOR HIM TO COME BACK" HE SAYS "I DON'T KNOW, WHY AM I HERE" EXPLAINED TO PATIENT THAT WE WERE TOLD HE WAS COMBATIVE AND THAT HE WAS TRYING TO RUN AWAY. PATIENT SAYS "THAT IS A LIE, IF I WANTED TO RUN AWAY I WOULD" I JUST TOLD THEM I DIDN'T WANT TO BE THERE ANYMORE.
--- NOTE | 2017-03-08 12:44 | NUR ---
CALLED SARBJIT DIEGO PATIENT'Arianna KAY AND DID RECEIVE VERBAL CONSENT AND CODE WORD. PATIENT'S BROTHER SARBJIT SAID "I'M AT MY WITS END I JUST DON'T KNOW WHAT TO DO." EXPLAINED TO HIM THAT HE IS AT THE RIGHT PLACE AND OUR CERTIFIED TECHNICIAN SPECIALIST ESSENCE GALLAGHER WILL BE ABLE TO ASSIST HIM IN THE RIGHT DIRECTION. PATIENT'S BROTHER WAS THANKFUL.
[2017-03-08 13:56] VITALS: BP 117/74; BMI 22.9
[2017-03-08] MEDS ORDERED: APAP325 MG PO (14:45)
[2017-03-08] MEDS ORDERED: BAYER CHEWABLE81 MG PO (14:46)
[2017-03-08] MEDS ORDERED: KLONOPIN0.5 MG PO (14:47)
[2017-03-08] MEDS ORDERED: MELATONIN 3 MG1 TAB PO (14:59)
--- NOTE | 2017-03-08 16:26 | NUR ---
PATIENT HAS BEEN ASKING STAFF FOR QUITE SOMETIME TO GET HIS CLOTHES BACK HE IS GETTING LOUDER, DID HAVE TECH INVENTORY HIS CLOTHES AND TAKE THEM TO HIM AND ALSO DID LET PATIENT KNOW THAT I AM GIVING HIM SOME MEDICINE. PATIENT GIVEN HALDOL 2 MG PO AND ATIVAN 0.5 MG PO BECAUSE HE IS ANXIOUS, PACING AND VERY LOUD. PATIENT IS [place], BUT HE IS GETTING LOUDER AND LOUDER HE SPEAKS.
--- NOTE | 2017-03-08 17:00 | NUR ---
PATIENT IS CALMER NOW AND HE SAYS "SEE, I AM BEING A GOOD BOY" EXPLAINED TO HIM HE IS ALWAYS A GOOD BOY, BUT HE SOMETIMES TALKS TOO MUCH AND GETS TOO LOUD. HE ALSO SAYS "WE MADE A DEAL, I'LL TAKE MY PILLS AND YOU WILL GET MY CLOTHES" I SAID NO, SIR WE DID NOT MAKE A DEAL YOU'RE GETTING YOUR CLOTHES BECAUSE WE TOLD YOU WE WOULD GET THEM, BUT YOU ARE GETTING THE MEDICINE BECAUSE YOU ARE ANXIOUS AND NEED IT. PATIENT SAID OK, UNSURE IF HE UNDERSTOOD HE IS VERY CONF[place]ER[place]. PATIENT IS CALMER NOW.
[2017-03-08 20:02] VITALS: BP 98/68
--- NOTE | 2017-03-09 03:26 | NUR ---
B) Patient is alert and oriented to self and hospital, needy and attention seeking, wandering in dayroom and dining room, I) Administered scheduled medications, redirected as needed, monitored for safety, R) Medication compliant, always asking for soda and candy P) Continue plan of care.
[2017-03-09 07:31] LABS: INR 1.05 (0.85-1.17); PROTIME 13.5 SECONDS (11.6-15.0)
[2017-03-09 08:31] VITALS: BP 111/72
[2017-03-09 10:40] VITALS: BMI 22.8
--- NOTE | 2017-03-09 12:52 | NUR ---
B) PATIENT HAS ASKED ALL AM TO GO TO THE BATHROOM EVERY FEW MINUTES, ASKED HIM IF HE FELT LIKE HE HAD A URINARY TRACT INFECTION? PATIENT SAID "NO", HE SAYS I AM TRYING TO BE "A GOOD ANGELO" TOLD HIM HE IS A GOOD ANGELO, BUT HE CAN NOT LEAVE AND HE CAN NOT GO HOME, LUPE GUADALUPE, KATHLEEN HECK AND MYSELF HAVE ALL TOLD HIM THAT HE HAS TO STAY HERE UNTIL HE GOES TO A NEW LONG-TERM. HE IS NOT ABLE TO CARE FOR HIMSELF, IT IS NOT SAFE AND IT IS DANGEROUS BECAUSE HE HAS A MEMORY DEFICIT. PATIENT WANTS TO ARGUE AND SAY "NO I DO NOT HAVE ANY PROBLEMS, I'VE BEEN TAKING CARE OF MYSELF FOR 50 PLUS YEARS." PATIENT WILL NOT LISTEN OR REDIRECT. I) CONTINUE TO PROVIDE FACTUAL STATEMENTS TO PATIENT, PROVIDE PRESCRIBED MEDS. R) PATIENT IS COMPLIANT WITH MEDS, HE IS SITTING BY THE BACK DOOR AND HE WILL PROBABLY TRY TO RUN IF HE GETS A CHANCE. P) CONTINUE POC.
[2017-03-09 19:30] VITALS: BP 113/71
--- NOTE | 2017-03-10 03:48 | NUR ---
B) Patient is alert and oriented to self and being in a hospital, wants 'to go to [place] where a man can be free', restless at times, sits by the exits waiting, I) Administered scheduled medications, monitored for safety, redirected as needed. R) medication compliant P) Continue plan of care.
[2017-03-10 08:00] VITALS: BP 116/71
--- NOTE | 2017-03-10 10:00 | NUR ---
AGGITATED AT T.THINKS SHE DISREPECTED HIM,STATES"I DONT WANT TO HURT NOBODY BECAUSE I DONT WANT TO GO TO [place]." STATES" I CAN KNOCK THOSE WINDOWS OUT AND LEAVE,I WANT OUT OF HERE,I WANT TO GO TO [place]."ATIVAN 0.5MG PO GIVEN FOR AGGITATION WITH GOOD RESPONSE.IS COMPLIANT WITH MEDS.WILL CONTINUE WITH PLAN OF CARE,OBSERVE FOR SAFETY AND CHANGES.AMBULATES WITH SLIGHTLY UNSTEADY GAIT.
[2017-03-10 19:30] VITALS: BP 116/76
--- NOTE | 2017-03-11 02:19 | NUR ---
B) Patient is alert and oriented to self, very confused, wants to leave, ambulates independantly, intrusive at times, I) Administered scheduled medicationsmonitored for safety R) Medication complaint, sits near the exits most of the time.\ P) Continue plan of care.
[2017-03-11 07:47] VITALS: BP 121/81
[2017-03-11 12:40] VITALS: BMI 23.8
--- NOTE | 2017-03-11 12:41 | NUR ---
PT CONTINUES TO BE EXIT SEEKING AND WANDERING THE HALLWAY. NO PHYSICAL AGGRESSION NOTED BUT HE DOES SHOW SOME VERBAL AGGRESSION. PT HAS NO INSIGHT INTO LIMITATIONS AND REQUIRES FREQUENT REDIRECTION WITH NO EVIDENCE OF RETAINING. MEDICATIONS GIVEN ORDERED. FALL PRECAUTIONS MAINTAINED. WILL CONTINUE TO MONITOR AND CONTINUE WITH PLAN OF CARE.
[2017-03-11 19:30] VITALS: BP 126/79
--- NOTE | 2017-03-11 20:44 | NUR ---
RECEIVED IN DINING AREA. WALKING ABOUT. SOCIALIZING WITH STAFF AND PEERS. CALM AND COOPERATIVE WITH CARE AND ASSESSMENTS. NO SIGNS OF AGGRESSION. REDIRECT AND REORIENT NEEDED. CONTINUES TO MOVE ABOUT SOCIALIZING WITH PEERS AND STAFF. CONTINUE PLAN OF CARE
[2017-03-12 08:43] VITALS: BP 121/70
--- NOTE | 2017-03-12 10:27 | NUR ---
PT VERBALLY AGGRESSIVE AND THREATENING HARM TO OTHER PTS. HE ALSO THREATENED TO BREAK OUT WINDOWS IN THE DAYROOM. COPING SKILLS USED TO HELP PT TO CALM DOWN. DISTRACTION AND ALLOWING THE PT TO EXPRESS HIS FRUSTRATION WITHOUT JUDGEMENT WAS ALSO USED. MEDICATIONS GIVEN ORDERED. FALL PRECAUTIONS MAINTAINED. WILL CONTINUE TO MONITOR AND CONTINUE WITH PLAN OF CARE.
[2017-03-12 19:53] VITALS: BP 114/73
--- NOTE | 2017-03-12 20:27 | NUR ---
RECEIVED IN DAYROOM. WALKING ABOUT. CHECKING DOORS AT TIMES. SOCIAL WITH STAFF AND PEERS. CALM AND COOPERATIVE WITH CARE AND ASSESSMENTS. NO SIGNS OF AGGRESSION. REDIRECT AND REORIENT NEEDED. IN HALLWAY OUTSIDE OF NURSES STATION AT THIS TIME. CONTINUE PLAN OF CARE
[2017-03-13 07:00] VITALS: BP 108/69
[2017-03-13 07:06] LABS: INR 1.33 (0.85-1.17); PROTIME 16.4 SECONDS (11.6-15.0)
--- NOTE | 2017-03-13 09:11 | NUR ---
B) PATIENT IS AWAKE AND ALERT, THE ONLY THING HE HAS SAID THIS AM IS "I WANNA GO HOME" HE DID NOT SAY IT IS A MEAN WAY, JUST MATTER OF FACT. HE IS WATCHING STAFF AND PATIENTS. HE AMBULATES INDEPENDENTLY. HE IS DISORGANIZED IN THOUGHT PROCESSES, HE BELIEVES HE CAN GO TO [place] AND LIVE BY HIMSELF, BUT PATIENT HAS POOR SHORT TERM MEMORY RECALL AND HE WOULD NOT FARE WELL ALONE. I) PROVIDE PRESCRIBED MEDS, REDIRECT TO REALITY AND SITUATION NEEDED. R) PATIENT IS CALM THIS AM. P) CONTINUE POC.
--- NOTE | 2017-03-13 13:38 | PN ---
PATIENT:ELIOT DIEGO MEDICAL RECORD: [id number] LOCATION:[facility] ADMISSION DATE: 03/08/17 PROGRESS NOTE DATE OF SERVICE: 03/09/2017 SUBJECTIVE: The patient's case was discussed with staff. He has no new complaint. OBJECTIVE: The patient is very angry, but he has not been threatening or aggressive. He continues to insist that he is supposed to be discharged, which is not correct. Explaining his situation to him is frustrating because it leads him to argue about facts that are not arguable and then he circles back to the beginning and wants to know why he cannot go back to [place]. It is a circular argument that is again something that is very difficult to stop. He clearly is going to have to go to a custodial. He has dementia and cannot care for himself. His brothers as guardian. He has no insight about any of this and given his behavior, he is going to require a custodial that can accommodate someone with some degree of combativeness. TRANSINT:[id number] Voice Confirmation ID: [id number] DOCUMENT ID: [id number] ELIEL CHEATHAM MD at 1338 CC: [id number] DICTATION DATE: 03/09/17 1246 SURVEY RESEARCH ANALYST: 03/09/17 1409 ADM IN [place] [id number] [place] [address]
--- NOTE | 2017-03-13 13:38 | PSY ---
PATIENT NAME:ELIOT DIEGO MEDICAL RECORD: [id number] : 45 LOCATION:[facility]4 ADMISSION DATE: 03/08/17 ACCOUNT: [id number] PSYCHIATRIC EVALUATION DATE OF EVALUATION: 03/08/17 IDENTIFYING DATA: The patient is 71 years old and he is known to me from previous clinical contact. CHIEF COMPLAINT: Aggression. HISTORY OF PRESENT ILLNESS: The patient was here about a month ago. He has been discharged less than 2 weeks. He has a history of dementia. He was having trouble managing his affairs, and for that reason, he moved from [place] to here and has been living with his brother for a long time. Unfortunately, he has continued to decline and he was admitted here in January because of some ongoing agitated and disruptive behaviors. While here, he was evaluated and diagnosed with dementia. His brother went to court and has actually obtained guardianship. The patient was placed in a long term. Since being there, he has been disruptive and most recently physically aggressive, which is what precipitates this admission. The patient denies that he has been physically aggressive and continues to ruminate on the same thing and that is he wants to go back to [place]. PAST MEDICAL HISTORY: Significant for gastroesophageal reflux disease and hypertension. PAST PSYCHIATRIC HISTORY: Significant for dementia. The patient has been on Aricept for sometime. He has been hospitalized once for psychiatric reasons and that was here one month ago. FAMILY HISTORY: Negative for psychiatric disease. ALLERGIES: No known drug allergies. CURRENT MEDICATIONS: Please see the admission's MAR. SOCIAL HISTORY: The patient is single. He has been living with his brother, who is his guardian; but for the past 2 weeks, he has been in a long term. He denies a history of drug or alcohol abuse, although I do not think that is correct. MENTAL STATUS EXAMINATION: The patient is awake, alert, and oriented to person and place only. His mood is angry. His affect is constricted. Thought processes are circumstantial. Memory, concentration, and abstraction abilities are moderately impaired. He denies that he would seek to harm himself or others. He denies overt psychotic symptoms. ASSETS: Supportive family members. LIABILITIES: Limited insight. 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 AXIS II: None. AXIS III: Hypertension. AXIS IV: Moderate stressors. AXIS V: Global assessment of functioning is 35. PLAN: At this time, the patient is admitted to the hospital secondary to agitated behavior associated with a dementing illness. He will be treated with both mood stabilizing and antipsychotic medications. His long-term prognosis is guarded. TRANSINT:[id number] Voice Confirmation ID: [id number] DOCUMENT ID: [id number] ELIEL CHEATHAM MD at 1338 CC: [id number] DICTATION DATE: 03/08/17 1305 BACKER UP: 03/08/17 1338 ADM IN [facility] [address] [place] [address]
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
[2017-03-13 20:01] VITALS: BP 115/75
--- NOTE | 2017-03-13 20:21 | NUR ---
RECEIVED IN DAYROOM. SITTING WITH PEERS SOCIALIZING. CALM AND COOPERATIVE WITH CARE AND ASSESSMENTS. NO SIGNS OF AGGRESSION. NO EXIT SEEKING. REDIRECT AND REORIENT NEEDED. IN HALLWAY AT NURSES STATION AT THIS TIME. CONTINUE PLAN OF CARE
[2017-03-14 06:57] LABS: INR 1.37 (0.85-1.17); PROTIME 16.7 SECONDS (11.6-15.0)
[2017-03-14 08:00] VITALS: BP 116/75
--- NOTE | 2017-03-14 09:00 | NUR ---
Received pt. this a.m. in dining room, alert, calm, somewhat restless mood stating, "I'm ready to go to [place]. When the doctor comes, I'm going to tell him that I am ready to go." Meds admin per orders. Group therapy provided. Farida meds well without s/s adverse reaction. Cont POC, monitor for aggression/combativeness.
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
--- NOTE | 2017-03-14 14:37 | NUR ---
RD follow up note Chart reviewed, pt consuming 62% average intake X 17 meals on Regular diet. Meds reviewed, Dewey 22 with skin WDP, no BM noted GI WDP. Weight appears to have had an increase, questional if this is true weight or fluid, pt is on lasix. no changes at this time. PLAN: continue curren diet, Contnue plan of care, RD to continue to follow
--- NOTE | 2017-03-14 16:14 | PN ---
PATIENT:ELIOT DIEGO MEDICAL RECORD: [id number] LOCATION:[facility]aya112 ADMISSION DATE: 03/08/17 PROGRESS NOTE DATE OF SERVICE: 03/13/2017 SUBJECTIVE: The patient's case was discussed with staff. He has no new complaint. OBJECTIVE: The patient denies intent to harm himself or others. He generally tolerates his medicines well. He is still angry and is not understanding the legal circumstances that have brought him here and feels that it has somehow been done in a deceitful way. He insists that things have not been done properly. He is very argumentative about it, but not combative or threatening today. ASSESSMENT: No change in diagnoses. PLAN: Current medicines have been reviewed and will be maintained. Both supportive and educational interventions were made. His long-term prognosis is guarded. TRANSINT:[id number] Voice Confirmation ID: [id number] DOCUMENT ID: [id number] ELIEL CHEATHAM MD at 1614 CC: [id number] DICTATION DATE: 03/13/17 1348 SANTA'S HELPER: 03/13/17 1631 ADM IN [facility] [address] [place] [id number]
[2017-03-14 20:51] VITALS: BP 120/72
--- NOTE | 2017-03-14 21:58 | NUR ---
RECEIVED IN [place]. STANDING AT NURSES STATION. VOICING NEEDS. SOCIALIZING WITH STAFF. CALM AND COOPERATIVE WITH CARE AND ASSESSMENT. NO SIGNS OF AGGRESSION. NOT EXIT SEEKING THIS PM. ENCOURAGE TO EXPRESS NEEDS. REDIRECT AND REORIENT NEEDED. RESTING IN BED WITH EYES CLOSED AT THIS TIME. CONTINUE PLAN OF CARE.
[2017-03-15 06:07] LABS: INR 1.54 (0.85-1.17); PROTIME 18.4 SECONDS (11.6-15.0)
--- NOTE | 2017-03-15 10:45 | NUR ---
PATIENT HAS BEEN IRRITABLE THIS AM, HE REFUSED AM MEDS AND STAFF EXPLAINED TO HIM THAT HE NEEDS TO TAKE HIS MEDS, PATIENT SAYS "I WANT TO GO HOME" AGAIN STAFF EXPLAINED TO HIM WE ARE LOOKING FOR PLACEMENT FOR HIM. HE DOES NOT HAVE ANY INSIGHT INTO HIS ILLNESS SO HE IS NOT COMPREHENDING WHY HE CAN'T LEAVE RIGHT NOW. PATIENT AMBULATES INDEPENDENTLY. PROVIDE PRESCRIBED MEDS. PATIENT REFUSES TO TAKE THEM TODAY. HE IS PACING THE FLOOR AND HE IS ACTIVELY LOOKING FOR A WAY TO GET OUT OF THE UNIT. HE SAYS "IF I WANT OUT, I'LL GET OUT" TODAY. CONTINUE WITH PLAN OF CARE AND MONITO HIS MOOD FOR AGGRESSION AND EXIT SEEKING BEHAVIORS.
--- NOTE | 2017-03-15 13:28 | PN ---
PATIENT:ELIOT DIEGO MEDICAL RECORD: [id number] LOCATION:[facility]112 ADMISSION DATE: 03/08/17 PROGRESS NOTE DATE OF SERVICE: 03/14/2017 Psychiatric Progress Note SUBJECTIVE: The patient's case was discussed with staff. He has no new complaint. OBJECTIVE: The patient is in good behavioral control. He has no thoughts of harming himself or others and he has not been aggressive. Unfortunately, the patient has almost no short term memory and as documented before we repeatedly go over the same information about his brother guardianship, senior living, and going to [place]. I am trying to be as patient as possible and have literally explained this situation to him dozens of times and it just simply does not help. He is frustrated, angry, cannot recall the information and does not want to be here. ASSESSMENT: No change in diagnoses. PLAN: I think the patient will settle into a senior living once he gets there and is given an opportunity to settle in. It is going to take a little while. He has not been aggressive here. He was not aggressive here during his last hospitalization and I think given enough of an opportunity he will settle in. TRANSINT:[id number] Voice Confirmation ID: [id number] DOCUMENT ID: [id number] ELIEL CHEATHAM MD at 1328 CC: [id number] DICTATION DATE: 03/14/17 1645 MOUNTED POLICE: 03/14/17 2100 ADM IN [facility] [address] [place] [address]
[2017-03-15 19:58] VITALS: BP 126/79
--- NOTE | 2017-03-16 01:33 | NUR ---
B) Patient alert and oriented to self and being in a hospital, patient stated to another patient that he was here for getting drunk, I) Administered scheduled medications, redirected as needed, R) Medication compliant, restless at times, wanting to go home, P) Continue plan of care.
[2017-03-16 07:01] LABS: INR 1.55 (0.85-1.17); PROTIME 18.5 SECONDS (11.6-15.0)
[2017-03-16 08:36] VITALS: BP 116/77
--- NOTE | 2017-03-16 13:50 | NUR ---
B) PATIENT ASKS "CAN I LEAVE BECAUSE TOMORROW IS MY BIRTHDAY." TRY TO EXPLAIN TO HIM THAT HE IS NOT ABLE TO LEAVE. HE IS GETTING AGITATED. HE DID TAKE HIS GEODON INJECTION THIS AM WITH A COFFEE BRIBERY, BUT HE HAS NOT SETTLED, IN FACT HE WAS ALLOWED TO SIT IN THE [place] AND HE GOT UP AND PULLED A PIECE OF THE PICTURE FRAME OFF THE WALL, HE DID THIS TWICE AND PATIENT DID RECEIVE HALDOL 2 MG AND ATIVAN 0.5 MG PO. PATIENT HAS MADE THE STATEMENT "THAT SHOT IS NOT GOING TO MAKE ME ACT BETTER." I) PROVIDE PRESCRIBED MEDS. R) PATIENT REFUSED HIS PO LASIX THIS AM. P) CONTINUE POC.
[2017-03-16 19:30] VITALS: BP 130/78
--- NOTE | 2017-03-17 04:05 | NUR ---
B) Patient is alert and oriented to self and being in a hospital, wants to go home, wanders the hallway and asks for candy or soda. I) Administered scheduled medications, monitored for safety, R) medication compliant, redirects without difficulty P) Continue plan of care.
[2017-03-17 06:14] LABS: INR 1.5 (0.85-1.17)
[2017-03-17 09:41] VITALS: BP 127/86
--- NOTE | 2017-03-17 15:36 | NUR ---
B) ALERT AND ORIENTED TO SELF AND WANTS TO GO HOME TODAY, SINCE IT IS HIS BIRTHDAY. HE STANDS BY DOOR WAITING FOR HIS DOCTOR TO COME. CALM AND COOPERATIVE, NO AGGRESSIVE BEHAVIOR NOTED. WANDERS IN HALLWAY A LOT. I) ADMINISTERED PRESCRIBED MEDICATIONS, ASSESSMENT COMPLETED. R) COMPLIANT WITH MEDICATIONS. WALKS AROUND THE HALLS AND SITS AT WINDOW. P) CONTINUE WITH PLAN OF CARE AND MONITOR FOR SAFETY AND CHANGES.
[2017-03-17 20:25] VITALS: BP 133/81
--- NOTE | 2017-03-18 01:13 | NUR ---
B) Patient alert and oriented to person, place and time, today was his birthday, restless and wanting to go [place], cooperative with care and assessment, I) Administered scheduled medications, monitored for safety, R) Medication compliant with coffee bribe, pleasant and friendly P) Continue plan of care.
[2017-03-18 07:00] VITALS: BP 120/78
[2017-03-18 07:22] LABS: INR 1.68 (0.85-1.17); PROTIME 19.7 SECONDS (11.6-15.0)
--- NOTE | 2017-03-18 13:16 | NUR ---
ORIENTED TO SELF AND HOSPITAL,YEAR.AMBULATORY,RESTLESS.WANTS TO GET OUT OF HERE AND GO TO [place] TODAY.COMPLIANT WITH MEDS.NO AGGRESSION OBSERVED TODAY.WILL CONTINUE WITH PLAN OF CARE,MONITOR FOR SAFETY AND CHANGES.
[2017-03-18 19:35] VITALS: BP 125/69
--- NOTE | 2017-03-18 20:07 | PN ---
PATIENT:ELIOT DIEGO MEDICAL RECORD: [id number] LOCATION:[facility]112 ADMISSION DATE: 03/08/17 PROGRESS NOTE DATE OF SERVICE: 03/16/2017 SUBJECTIVE: No new complaint. OBJECTIVE: The patient is taking his medication intramuscularly for the most part. Behavior has improved moderately. Plans are for discharge after the weekend. On exam, mood is slightly irritable. Affect is shallow. Speech is tangential. Content of thought is negative for clearcut hallucinosis. Sensorium shows no change. ASSESSMENT: No change in diagnosis. PLAN: 1. Maintain current medication. 2. Continue supportive therapy. TRANSINT:[id number] Voice Confirmation ID: [id number] DOCUMENT ID: [id number] WENDY LACEY III, MD at 2006 CC: [id number] DICTATION DATE: 03/16/17 1155 PLASTICS HEAT WELDER: 03/16/17 1326 ADM IN [place] [id number] [place] [id number]
--- NOTE | 2017-03-19 00:07 | NUR ---
RECEIVED IN HALLWAY OUTSIDE OF DINING AREA. CHECKING EXIT DOORS AT TIMES. CALM AND COOPERATIVE WITH CARE AND ASSESSMENT. NO SIGNS OF AGGRESSION. ENCOURAGE TO EXPRESS NEEDS. REDIRECT AND REORIENT NEEDED. RESTING IN BED WITH EYES CLOSED. CONTINUE PLAN OF CARE.
[2017-03-19 06:28] LABS: INR 1.64 (0.85-1.17); PROTIME 19.4 SECONDS (11.6-15.0)
[2017-03-19 07:00] VITALS: BP 114/76
--- NOTE | 2017-03-19 10:00 | NUR ---
B)ALERT AND ORIENTED, TO TIME, PLACE AND SITUATION. HE AMBULATES AROUND UNIT, RESTLESS AND READY TO GO HOME TO [place]. HE IS STAYING CALM AND COOPERATIVE ANTICIPATING HIS DISCHARGE TODAY. I) ADMINISTERED SCHEDULED MEDICATIONS, ASSESSMENT COMPLETED AND VSS. R) MEDICATION AND UNIT MILIEU COMPLIANT. P) CONTINUE PLAN OF CARE.
--- NOTE | 2017-03-19 13:43 | PN ---
PATIENT:ELIOT DIEGO MEDICAL RECORD: [id number] LOCATION:[facility]112 ADMISSION DATE: 03/08/17 PROGRESS NOTE DATE OF SERVICE: 03/15/2017 SUBJECTIVE: The patient's case was discussed with staff. He has no new complaint. OBJECTIVE: The patient is intermittently refusing medications. He is very argumentative. He has again no insight about his circumstances or situation, which he is not happy about. Repeatedly telling him about his circumstances only leads to him being escalated and more argumentative. ASSESSMENT: No change in diagnoses. PLAN: I am going to treat this patient with some IM Geodon for the next few days. Hopefully, this will calm him enough to where he will take his regularly scheduled medications on a more consistent basis. In order to help with this, I am going to stop all medicines that are not absolutely essential. While that might sound like something that should be done always and with everyone, there are some medicines that are helpful, for example the multiple vitamins that he is taking that certainly are helpful, but they are not absolutely essential and I think part of the problem he is having is that he is being presented with kwabena many pills and if we can present him with fewer pills, I think he may be more compliant and then others can be added on an as needed basis. Based on this line of thinking, I have stopped three different vitamin tablets and his Protonix. I have also gone ahead and stopped his psychoactive medications since he does not want them. I am going to give him injections of Geodon on a twice daily basis for the next few days and again hopefully if this will help with him being more compliant other oral medicines can be added back in sequence. TRANSINT:[id number] Voice Confirmation ID: [id number] DOCUMENT ID: [id number] ELIEL CHEATHAM MD at 1343 CC: [id number] DICTATION DATE: 03/15/17 1342 BUSINESS OFFICE ASSOCIATE: 03/15/17 1437 ADM IN [place] [id number] [place] [id number]
--- NOTE | 2017-03-19 14:16 | NUR ---
ATIVAN 0.5 MG PO GIVEN FOR ANXIETY
--- NOTE | 2017-03-19 16:00 | NUR ---
INFORMED PATIENT THAT HIS RIDE WOULD NOT BE HERE UNTIL 10;30 SUNDAY MORNING. YOU COULD SEE THE DISAPPOITMENT ON HIS FACE, BUT HE STAYED CALM AND NO AGGRESSION EXPRESSED.
[2017-03-19 19:20] VITALS: BP 124/70
--- NOTE | 2017-03-19 21:49 | NUR ---
RECEIVED IN [place]. STANDING AT NURSES STATION. VOICING NEEDS. TALKING WITH STAFF ABOUT TOMORROWS DISCHARGE. CALM AND COOPERATIVE WITH CARE AND ASSESSMENT. NO SIGNS OF AGGRESSION. NO DELUSIONAL STATEMENTS. ENCOURAGE TO EXPRESS NEEDS. REDIRECT AND REORIENT NEEDED. RESTING IN BED WITH EYES CLOSED. CONTINUE PLAN OF CARE.
[2017-03-20 05:59] LABS: INR 1.67 (0.85-1.17); PROTIME 19.6 SECONDS (11.6-15.0)
--- NOTE | 2017-03-20 09:00 | NUR ---
Received in dining room for b'fast, alert, calm, no aggression noted, denies pain, no s/s distress. Pt frequently inquires when his transportation will arrive for his discharge to LTC facility. Med compliant, no s/s distress. Meds admin per orders and group therapy provided. Pt declined group, electing to wait by the exit door watching for his transportation. Denies pain. No s/s distress or adverse reaction to meds.
[2017-03-20 09:53] VITALS: BP 141/80
--- NOTE | 2017-03-20 15:22 | PN ---
PATIENT:ELIOT DIEGO MEDICAL RECORD: [id number] LOCATION:[facility]aya112 ADMISSION DATE: 03/08/17 PROGRESS NOTE DATE OF SERVICE: 03/19/2017 SUBJECTIVE: The patient's case was discussed with staff. He has no new complaint. OBJECTIVE: The patient is in good behavioral control with limited insight about his condition. He still is argumentative and there is little point in discussing the situation with him since he cannot remember from day to day what is discussed and, in fact, he cannot remember more than a few minutes into the argument what has already been said. ASSESSMENT: No change in diagnoses. PLAN: The patient is going to be transitioned to a secure facility in [place] tomorrow. His long-term prognosis is guarded. Supportive and educational interventions were made and I have reviewed his medications. I think the situation is truly unfortunate, but there just is no less restrictive environment in which he can be managed. I do think that given an opportunity to settle into the facility, he will settle just as he has done so here, although I think it is going to take some time before he gives up on the notion of going back to [place] and living independently. I do not think he is acutely dangerous and it is reasonable to transition him to the facility. TRANSINT:[id number] Voice Confirmation ID: [id number] DOCUMENT ID: [id number] ELIEL CHEATHAM MD at 1522 CC: [id number] DICTATION DATE: 03/19/17 1351 BUTTON BUTTONHOLE MARKER: 03/19/17 1630 ADM IN [place] [address] [place] [address]
--- NOTE | 2017-03-21 15:32 | PN ---
PATIENT:ELIOT DIEGO MEDICAL RECORD: [id number] LOCATION:[facility] Luz112 ADMISSION DATE: 03/08/17 PROGRESS NOTE DATE OF SERVICE: 03/20/2017 SUBJECTIVE: The patient's case was discussed with staff. He has no new complaint. OBJECTIVE: The patient denies intent to harm himself or others. He generally tolerates his medicines well. He has limited insight about his situation. ASSESSMENT: No change in diagnoses. PLAN: The patient will be transitioned out of the hospital today. He is to go to a [facility] in [place]. Followup will be with his primary care [facility] physician. TRANSINT:[id number] Voice Confirmation ID: [id number] DOCUMENT ID: [id number] ELIEL CHEATHAM MD at 1532 CC: [id number] DICTATION DATE: 03/20/17 1530 THERAPEUTIC MASSAGE TECHNICIAN: 03/20/172120 DIS IN 03/20/17 [facility] [address] [place] [address]
--- NOTE | 2017-04-02 12:21 | DS ---
PATIENT:ELIOT DIEGO :45 MEDICAL RECORD: [id number] DISCHARGE SUMMARY ADMISSION DATE: 03/08/17 DISCHARGE DATE: 03/20/17 IDENTIFYING DATA: The patient is 71 years old and he is well known to me from previous clinical contact. CHIEF COMPLAINT: Aggression. HISTORY OF PRESENT ILLNESS: This was the second admission to the behavioral unit for this man. He has a history of dementia and has been living with his brother who is his guardian. The man continues to be uncooperative, insists he can manage his own affairs and wants to leave [place] and live in [place] independently. The problem is he is objectively incapable of doing this and his brother has been appointed his guardian by the court. The patient has had this explained to him many times, he either cannot understand it, cannot remember it or refuses to accept it. He becomes aggressive and violent. HOSPITAL COURSE: The patient was admitted to the hospital and fully evaluated from both a medical, psychological, and social standpoint. He was treated with both memory enhancing and mood stabilizing medications and showed improvement. He was subsequently transitioned back to a penitentiary. At the time of discharge, he was no longer having thoughts of harming himself or others and was certainly not having any aggressive behaviors, although he was still quite argumentative about the guardianship as described above. I did give him a copy of the guardianship papers, which I asked him to keep with him, and each time I would see him, he would pull them out and then we would have the same conversation about how did this happened and how it is unjust, but at least having the papers in his possession was something that I think was helpful. I would recommend that is a behavioral strategy to the penitentiary he is going to. DISCHARGE DIAGNOSES: AXIS I: Senile dementia of the Alzheimer's type with behavioral disturbances. AXIS II: None. AXIS III: Hypertension. AXIS IV: Moderate stressors. AXIS V: Global assessment of functioning is 40. PLAN: At the time of discharge, the patient was in good behavioral control and had no active thoughts of harming himself or others. Followup is to be with his primary care penitentiary physician. TRANSINT:[id number] Voice Confirmation ID: [id number] DOCUMENT ID: [id number] ELIEL CHEATHAM MD at 1221 CC: [id number] DICTATION DATE: 03/29/17 1336 SKIDDER LEVER OPERATOR: 03/30/17 0041 DIS IN 03/20/17 [facility] [address] [place] [address]
== END 2017-03-20 13:50 | DRG 57 ==
LOC: D.ER 09:29 → D.PSYCH 12:13
PROVIDERS: Emergency Medicine; Family Medicine; ADMIT Psychiatry & Neurology Psychiatry
DX: G30.1 Alzheimer's disease with late onset (principal); F02.81 Dementia in other diseases classified elsewhere, unspecified severity, with behavioral disturbance; I10 Essential (primary) hypertension; K21.9 Gastro-esophageal reflux disease without esophagitis; F10.21 Alcohol dependence, in remission; Z79.01 Long term (current) use of anticoagulants; E53.8 Deficiency of other specified B group vitamins; E55.9 Vitamin D deficiency, unspecified; I25.10 Atherosclerotic heart disease of native coronary artery without angina pectoris; F41.9 Anxiety disorder, unspecified; N40.0 Benign prostatic hyperplasia without lower urinary tract symptoms; Z87.891 Personal history of nicotine dependence

== ENCOUNTER 2017-04-07 17:57 | Inpatient (IN) | payer MEDICARE ==
[~2017-04-07 17:57] MED LIST changes: +APAP325 MG PO; +BAYER CHEWABLE81 MG PO; +KLONOPIN0.5 MG PO; +MELATONIN 3 MG1 TAB PO
[2017-04-07 18:33] LABS: BASOPHILS 0.1 % (0-2); EOSINOPHILS 0.9 % (0-7); HEMATOCRIT 29.3 % (42.0-54.0); HEMOGLOBIN 9.6 g/dL (13.5-17.5); IMMATURE GRANULOCYTES 0.2 % (0-5); LYMPHOCYTES 8.7 % (15-50); MCH 26.7 pg (26.0-34.0); MCHC 32.8 g/dL (31.0-37.0); MCV 81.6 fL (80.0-100.0); MEAN PLATELET VOLUME 9.5 fL (7.4-10.4); MONOCYTES 10.9 % (2-11); NEUTROPHILS 79.2 % (40-80); RBC 3.59 10x6/uL (4.20-6.10); RDW 15.5 % (11.5-14.5); WBC 10.3 10x3/uL (4.8-10.8)
[2017-04-07 18:34] LABS: PLATELET COUNT 222 10x3/uL (130-400)
[2017-04-07 18:44] LABS: APTT 37.7 SECONDS (22.8-39.4); INR 1.72 (0.85-1.17); PROTIME 20.2 SECONDS (11.6-15.0)
[2017-04-07 18:45] LABS: D-DIMER-QUANTITATIVE 1.44 ug/mLFEU (0.20-0.54)
[2017-04-07 18:52] LABS: ALBUMIN 2.4 g/dL (3.4-5.0); BILIRUBIN - TOTAL 0.26 mg/dL (0.2-1.3); CALCIUM 9.4 mg/dL (8.5-10.1); CARBON DIOXIDE 28.2 mmol/L (21.0-32.0); CREATININE - SERUM 1.6 mg/dL (0.6-1.3); POTASSIUM - SERUM 3.2 mmol/L (3.5-5.1); PROTEIN - SERUM 7.2 g/dL (6.4-8.2)
[2017-04-07 19:09] LABS: APPEARANCE HAZY (CLEAR); BILIRUBIN NEGATIVE (NEGATIVE); COLOR YELLOW (YELLOW); GLUCOSE NEGATIVE (NEGATIVE); KETONE SMALL mg/dL (NEGATIVE); NITRITE NEGATIVE (NEGATIVE); PROTEIN NEGATIVE (NEGATIVE); UROBILINOGEN NORMAL (NORMAL)
[2017-04-07 19:16] LABS: BACTERIA FEW /hpf (NONE SEEN); EPITHELIAL CELLS 0-5 /hpf (0-5); RED CELLS - URINE >50 /hpf (0-5); WHITE CELLS - URINE 0-5 /hpf (0-5)
--- NOTE | 2017-04-07 20:02 | NUR ---
CM visited with patient/family regarding their request of NH placement. Patient has been a resident of [facility] and [facility]. Also has been a clent in [employer] [facility] in past. Guardianship: Rogelio Sosa (brother) #[phone], Genie Sosa (S-I-L) [phone]. CM request that guardians bring paperwork tomorrow, to CM on medical floor. PCP Dr Uribe/Dr Lamas office prior to [place] residence. Colette Carmen RN CM
--- NOTE | 2017-04-07 23:30 | NUR ---
KEVIN GAMEZ AND VERA SANCHEZ IMMEDIATELY RESPONDED TO THE PATIENT'S BED ALARM/CALL LIGHT. UPON ENTERING THE ROOM KEVIN STATED THAT THE PATIENT WAS ALREADY IN THE FLOOR STATING "I WAS GOING TO THE BATHROOM." LIBBY GARCIA, VERA BROWN, AND LIBBY OSMAN HELPED GET THE PATIENT BACK INTO BED. PATIENT DOES NOT APPEAR TO HAVE ANY INJURIES RELATED TO THE INCIDENT AND THE PATIENT'S VITALS ARE WNL. PATIENT WAS OFFERED THE URINAL APROX 20 MINS PRIOR TO HIS FALL AND URINATED 200ML. I REITERATED FALL PRECAUTIONS TO THE PATIENT.
--- NOTE | 2017-04-07 23:45 | NUR ---
SPOKE WITH PILLO, PATIENT'S SISTER IN LAW AND INFORMED HER THAT UPON RESPONDING TO THE PATIENT'S CALL LIGHT/BED ALARM THE PATIENT WAS FOUND, BY STAFF, IN THE FLOOR. I ENCOURAGED PILLO TO HAVE A FAMILY MEMBER COME AND SIT WITH THE PATIENT. PILLO STATED THAT SHE WOULD SPEAK WITH SARBJIT [PATIENT'S BROTHER] AND MAKE A DECISION.
--- NOTE | 2017-04-08 00:47 | NUR ---
I ATTEMPTED TO LEAVE A MESSAGE FOR DR. BLISS THROUGH HIS ANSWERING SERVICE IN REGARDS TO THE PATIENT BEING FOUND ON THE FLOOR BY STAFF. THE ANSWERING SERVICE STATED THAT IF THEY TOOK A MESSAGE DR. BLISS WOULD BE PAGED. I INFORMED THE ANSWERING SERVICE NOT TO PAGE DR. BLISS. ZEENAT GARCIACHILD NUTRITION ASSISTANT CONTACTED THE ER DOC IN REGARDS TO THE INCIDENT.
[2017-04-08 02:01] VITALS: BP 129/83; BMI 24.5
[2017-04-08 04:00] VITALS: BP 133/81
[2017-04-08] MEDS ORDERED: GEODON20 MG PO (06:46)
[2017-04-08] MEDS ORDERED: CIPRO500 MG PO (06:47)
[2017-04-08] MEDS ORDERED: AUGMENTIN 875-11 TAB PO (06:48)
--- NOTE | 2017-04-08 07:00 | NUR ---
REPORT RECIEVED ASSUMED CARE. PATIENT IN BED WITH EYES CLOSED RESTING QUIETLY. IV INTACT. BA ON. BSCDS ON AND WORKING. CALL LIGHT WITHIN REACH.
--- NOTE | 2017-04-08 07:00 | NUR ---
REPORT RECIEVED ASSUMED CARE. PATIENT IN BED WITH NO COMPLAINTS. IV INTACT. CALL LIGHT WITHIN REACH.
--- NOTE | 2017-04-08 07:26 | NUR ---
PAGED DR. BLISS IN REGARDS TO PT'S FALL LAST NIGHT
[2017-04-08 08:43] VITALS: BP 138/84
--- NOTE | 2017-04-08 08:45 | NUR ---
PATIENT ASSESSMENT COMPLETE, VS STABLE. REFUSES TO EAT BREAKFAST OR TAKE MEDS AT THIS TIME. IV INTACT. CALL LIGHT WITHIN REACH.
[2017-04-08 12:10] VITALS: BP 135/72
--- NOTE | 2017-04-08 12:20 | NUR ---
PATIENT CHANGED AND REPOSTIONED AGAIN AT THIS TIME. IV INTACT. SAT PATIENT UP AND AT 75%. NO COMPLAINTS AT THIS TIME. IV INTACT. CALL LIGHT WITHIN REACH.
--- NOTE | 2017-04-08 15:45 | NUR ---
PATIENT IN BED WITH NO COMPLAINTS AT THIS TIME. IV INTACT. CALL LIGHT WITHIN REACH.
[2017-04-08 18:24] LABS: % SATURATION 10 % (15-55); IRON 27 ug/dl (35-150); TOTAL IRON BIND CAPACITY 251 ug/dl (260-445); UNSAT IRON BIND CAPACITY 224 ug/dl (150-375)
--- NOTE | 2017-04-08 18:45 | NUR ---
PATIENT IN BED WITH EYES CLOSED RESTING QUIETLY. IV INTACT. CALL LIGHT WITHIN REACH.
[2017-04-08 19:30] VITALS: BP 145/87
--- NOTE | 2017-04-08 19:40 | NUR ---
PATIENT RESTING IN BED WITH EYES CLOSED AND NO VISIBLE SIGNS OF DISTRESS. BED IN LOWEST POSITION, CALL LIGHT WITHIN REACH, AND BED ALARM ON. ENCOURAGED THE PT TO CALL IF HE HAS NEEDS.
[2017-04-08 23:30] VITALS: BP 140/85
[2017-04-09 04:00] VITALS: BP 138/80
[2017-04-09 06:35] LABS: BASOPHILS 0.1 % (0-2); EOSINOPHILS 0.5 % (0-7); HEMATOCRIT 29.6 % (42.0-54.0); HEMOGLOBIN 9.7 g/dL (13.5-17.5); IMMATURE GRANULOCYTES 0.4 % (0-5); LYMPHOCYTES 10.5 % (15-50); MCH 26.9 pg (26.0-34.0); MCHC 32.8 g/dL (31.0-37.0); MCV 82.2 fL (80.0-100.0); MEAN PLATELET VOLUME 9.9 fL (7.4-10.4); NEUTROPHILS 79.5 % (40-80); PLATELET COUNT 238 10x3/uL (130-400); RDW 15.5 % (11.5-14.5)
[2017-04-09 06:49] LABS: INR 3.36 (0.85-1.17); PROTIME 34.4 SECONDS (11.6-15.0)
[2017-04-09 06:57] LABS: ALBUMIN 2.2 g/dL (3.4-5.0); ANION GAP 10.2 mmol/L (8-16); BILIRUBIN - TOTAL 0.27 mg/dL (0.2-1.3); CREATININE - SERUM 1.5 mg/dL (0.6-1.3); POTASSIUM - SERUM 3.2 mmol/L (3.5-5.1); PROTEIN - SERUM 6.7 g/dL (6.4-8.2)
--- NOTE | 2017-04-09 07:55 | NUR ---
AM ROUNDING- RECIEVED REPORT FROM GEOGRAPHY DEPARTMENT CHAIR NURSE SABRINA. PT IS CURRENTLY SITTING UP IN BED WITH EYES CLOSED RESTING. ON ROOM AIR. PT HAS NO MONITOR ON CURRENTLY BUT HAS ORDERS. THIS NURSE CALLED HONG IN TELEMETRY AND WILL GET MONITOR FOR PT ORDERED. IV SEEN TO RIGHT HAND THAT IS CURRENTLY SALINE LOCKED. SCDS ARE ON PT CURRENTLY. WILL CONTINUE TO MONITOR AND CONTINUE WITH PLAN OF CARE.
[2017-04-09 08:48] VITALS: BP 131/69
[2017-04-09 11:55] VITALS: BP 119/76
--- NOTE | 2017-04-09 13:31 | NUR ---
DR. ANGULO ON UNIT. DR. ANGULO AWARE THAT PT IS IN PAIN AND HE ONLY HAD TYLENOL ORDERED. DR. CONWAY STATES HE WILL PUT ORDERS IN FOR SOMETHING FOR PAIN.
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
--- NOTE | 2017-04-09 14:27 | NUR ---
CALLED INTO PTS ROOM FOR PT HAVING "BLOOD COMING FROM PENIS AREA". THIS NURSE WENT AND ASSESSED PT AND PT HAS BLOOD COMING FROM PENIS AREA. URINE IS NOT BLOODY JUST BLOOD COMING STRAIGHT FROM PENIS. DR. CONWAY MADE AWARE OF THIS. DR. CONWAY STATES TO CONSULT UROLOGY. WILL PUT IN ORDERS GIVEN. WILL CONTINUE TO MONITOR. DR. CONWAY STATES OK TO GO AHEAD WITH HEPARIN.
[2017-04-09 15:18] VITALS: BMI 24.5
[2017-04-09 15:18] LABS: HEMATOCRIT 28.8 % (42.0-54.0); HEMOGLOBIN 9.4 g/dL (13.5-17.5); MCH 26.9 pg (26.0-34.0); MCHC 32.6 g/dL (31.0-37.0); MCV 82.3 fL (80.0-100.0); MEAN PLATELET VOLUME 10.3 fL (7.4-10.4); RBC 3.5 10x6/uL (4.20-6.10); RDW 15.6 % (11.5-14.5)
[2017-04-09 16:30] LABS: APTT > 200.0 SECONDS (22.8-39.4); INR 5.79 (0.85-1.17); PROTIME 53.1 SECONDS (11.6-15.0)
--- NOTE | 2017-04-09 18:05 | NUR ---
PT IS CURRENTLY SITTING UP IN BED WITH EYES OPEN EATING DINNER TRAY. PT DENIES ANY NEED AT THIS TIME. WILL CONTINUE TO MONITOR.
--- NOTE | 2017-04-09 19:30 | NUR ---
PATIENT RESTING IN BED WITH EYES CLOSED AND NO VISIBLE SIGNS OF DISTRESS. BED IN LOWEST POSITION, CALL LIGHT WITHIN REACH, AND BED ALARM ON.
--- NOTE | 2017-04-09 21:30 | NUR ---
HEPARIN DRIP NOT STARTED DUE TO INITIAL LABS RESULTING CRITICAL. LIBBY RIOS PUT AN ORDER IN TO CONFIRM RESULTS, LAB RESULTS PENDING
[2017-04-09 22:08] VITALS: BP 134/73
[2017-04-09 22:38] LABS: APTT 49.9 SECONDS (22.8-39.4); INR 3.05 (0.85-1.17); PROTIME 31.8 SECONDS (11.6-15.0)
[2017-04-10] VITALS (7 sets, daily range): BP systolic 100–148; BP diastolic 69–95
--- NOTE | 2017-04-10 01:30 | NUR ---
PATIENT HAS BLOOD COLORED URINE
[2017-04-10 05:37] LABS: BASOPHILS 0.1 % (0-2); EOSINOPHILS 0.6 % (0-7); HEMATOCRIT 27.7 % (42.0-54.0); HEMOGLOBIN 9.2 g/dL (13.5-17.5); IMMATURE GRANULOCYTES 0.2 % (0-5); LYMPHOCYTES 12.8 % (15-50); MCH 26.8 pg (26.0-34.0); MCHC 33.2 g/dL (31.0-37.0); MCV 80.8 fL (80.0-100.0); MEAN PLATELET VOLUME 9.7 fL (7.4-10.4); MONOCYTES 7.9 % (2-11); NEUTROPHILS 78.4 % (40-80); PLATELET COUNT 228 10x3/uL (130-400); RBC 3.43 10x6/uL (4.20-6.10); RDW 15.6 % (11.5-14.5); WBC 11.5 10x3/uL (4.8-10.8)
[2017-04-10 06:17] LABS: INR 1.98 (0.85-1.17); PROTIME 22.5 SECONDS (11.6-15.0)
[2017-04-10 06:18] LABS: APTT 129.9 SECONDS (22.8-39.4)
[2017-04-10 06:34] LABS: ALBUMIN 2.3 g/dL (3.4-5.0); ANION GAP 13.6 mmol/L (8-16); BILIRUBIN - TOTAL 0.23 mg/dL (0.2-1.3); CALCIUM 8.3 mg/dL (8.5-10.1); CREATININE - SERUM 1.4 mg/dL (0.6-1.3); POTASSIUM - SERUM 3.6 mmol/L (3.5-5.1); PROTEIN - SERUM 6.3 g/dL (6.4-8.2)
--- NOTE | 2017-04-10 07:56 | NUR ---
INTRODUCED MYSELF TO PT PRIMARY RN FOR TODAYS SHIFT. PT ALERT AND SITTING UP IN BED RESTING QUIETLY. PT HAS A R.HAND PIV WITH HEPARIN DRIP @13ML/HR IN PLACE, PT NEEDING SECOND PIV FOR INTERMITT. ANBX, 20 GUAGE X1 STICK INSERTED TO R.FA WILL START ANBX SHORTLY. PTS LEFT ARM VERY SWOLLEN AND TIGHT, ELEVATED ARM ON PILLOW FOR COMFORT AND PROVIDED ICE PACK REQUESTED. PULSES ARE STRONG AND EQUAL BILAT. PT CURRENTLY NPO FOR PROCEDURE WITH LATER, CONSENTS ARE WAITING TO BE SIGNED BY PTS POA R/T HIM BEING CONFUSED. CL IN REACH, BED IN LOWEST, SIDE RAILS X2, WILL CPOC.
[2017-04-10 09:15] LABS: FOLATE (FOLIC ACID) - SERUM >20.0 ng/mL (>3.0)
--- NOTE | 2017-04-10 09:54 | NUR ---
CALLED INQUIRING ABOUT WHEN TO STOP HEPARIN FOR SX AND WHEN TO PLAN MRI. SX IS PLANNED FRO 14OO AND MRI NEEDS DONE ANYTIME PRIOR WHEN POSSIBLE. STATES TO GO AHEAD AND STOP HEPARIN DRIP AT THIS TIME AND HE IS AWARE OF THE DVT. WILL STOP DRIP AND SL THAT PIV. STILL WAITING ON FAMILY FOR CONSENTS TO BE SIGNED. NO FURTHER NEEDS AT THIS TIME. WILL CPOC.
--- NOTE | 2017-04-10 12:30 | NUR ---
PT LEAVING FOR MRI AT THIS TIME VIA W/C. NO CURRENT NEEDS. WILL CPOC.
--- NOTE | 2017-04-10 13:00 | NUR ---
PT LEAVING FOR MRI AT THIS TIME VIA W/C. NO CURRENT NEEDS. WILL CPOC.
--- NOTE | 2017-04-10 13:18 | NUR ---
PT BACK FROM MRI. RESTING QUIETLY IN BED AWAITING SX. CL IN REACH, BED IN LOWEST, SIDE RAILS X2. WILL CPOC.
--- NOTE | 2017-04-10 14:50 | NUR ---
CONSENTS OBTAINED FOR LEFT HUMERUS INTRAMEDULLARY NAILING WITH . PT VERBALIZED UNDERSTANDING AND REQUEST SARBJIT TO BE CALLED, WILL CALL HIS FAMILY REQUESTED. PT DENIES ANY CURRENT PAIN OR NEEDS AND STATES "IM JUST READY TO GET DONE WITH IT" WILL CPOC.
--- NOTE | 2017-04-10 16:54 | NUR ---
PTS SX POST PONED TILL 6AM TOMORROW. PT IS NPO AFTER 10PM TONIGHT I EXPLAINED IT TO HIM AND HE VERBALIZED UNDERSTANDING. TRAY HAS BEEN ORDERED. NO CURRENT NEEDS AT THIS TIME. WILL CPOC.
--- NOTE | 2017-04-10 17:38 | NUR ---
OT NOTE: PT COMPLETED SIMPLE GROOMING TASK WITH SET UP. THANK YOU, WILBER HUTCHINSON
--- NOTE | 2017-04-10 19:55 | NUR ---
PATIENT RESTING IN BED WITH NO VISIBLE SIGNS OF DISTRESS. ASSESSMENT COMPLETED. PATIENT REQUESTED A SNACK AT THIS TIME. BED IN LOWEST POSITION AND CALL LIGHT WITHIN REACH. ENCOURAGED THE PT TO CALL IF HE HAS NEEDS.
[2017-04-10 20:11] LABS: PROTIME 18.1 SECONDS (11.6-15.0)
[2017-04-10 20:13] LABS: APTT 39.5 SECONDS (22.8-39.4); INR 1.51 (0.85-1.17)
[2017-04-11 04:00] VITALS: BP 132/72
[2017-04-11 05:53] LABS: BASOPHILS 0.1 % (0-2); EOSINOPHILS 0.8 % (0-7); HEMATOCRIT 29.6 % (42.0-54.0); HEMOGLOBIN 9.8 g/dL (13.5-17.5); IMMATURE GRANULOCYTES 0.3 % (0-5); LYMPHOCYTES 12.4 % (15-50); MCH 26.8 pg (26.0-34.0); MCHC 33.1 g/dL (31.0-37.0); MCV 81.1 fL (80.0-100.0); MEAN PLATELET VOLUME 10.2 fL (7.4-10.4); MONOCYTES 8.7 % (2-11); NEUTROPHILS 77.7 % (40-80); PLATELET COUNT 255 10x3/uL (130-400); RBC 3.65 10x6/uL (4.20-6.10); RDW 15.8 % (11.5-14.5); WBC 10.9 10x3/uL (4.8-10.8)
[2017-04-11 06:10] LABS: INR 1.39 (0.85-1.17)
[2017-04-11 06:47] LABS: ALBUMIN 2.3 g/dL (3.4-5.0); ANION GAP 12.9 mmol/L (8-16); BILIRUBIN - TOTAL 0.31 mg/dL (0.2-1.3); CALCIUM 8.4 mg/dL (8.5-10.1); CREATININE - SERUM 1.4 mg/dL (0.6-1.3); POTASSIUM - SERUM 3.9 mmol/L (3.5-5.1); PROTEIN - SERUM 6.3 g/dL (6.4-8.2)
--- NOTE | 2017-04-11 10:20 | NUR ---
RECEIVED PT FROM RECOVER. CONT VITALS INITIATED. PT WAKES TO VOICE. ICE APPLIED TO LEFT SHOULDER. TELEMETRY APPLIED. HOB >30 DEGRESS. NO NEEDS VOICED.
[2017-04-11 10:21] VITALS: BP 107/68
--- NOTE | 2017-04-11 12:39 | NUR ---
URINATED 175ML POST OP
--- NOTE | 2017-04-11 12:49 | NUR ---
PT HERE FOR SHOULDER FRACTURE FOR THIS VISIT PT SITTING UP IN BED WITH SLING ON EATING LUNCH AT THIS TIME SRX2 BED AT LOWEST SETTING CALL LIGHT WITHIN REACH WILL CONTINUE TO MONITOR
--- NOTE | 2017-04-11 15:17 | NUR ---
NUTRITION F/U CHART REVIEWED. PT SLEEPING. DIET ADVANCED TO REG WITH ~25% INTAKE AT LUNCH. WILL CONTINUE TO PROVIDE DIET, MONITOR INTAKE. RD FOLLOWING
--- NOTE | 2017-04-11 15:47 | OP ---
PATIENT NAME: ELIOT SOSA MEDICAL RECORD: [id number] :45 LOCATION:[id number] ADMISSION DATE:04/08/17 SURGEON: DAMASO CALVILLO DO DATE OF OPERATION: 04/11/2017 PROCEDURE PERFORMED: Left humerus IM nail. PREOPERATIVE DIAGNOSIS: Left proximal humeral shaft fracture. POSTOPERATIVE DIAGNOSIS: Left proximal humeral shaft fracture. INDICATIONS: Mr. Sosa is a 72-year-old male who has a large lung mass. He fell, he thinks about a week ago, and sustained a humerus fracture. Due to his known tumor, an MRI was done after sustaining the fracture on the x-rays, there is an acute fracture. Due to the patient's pain level it was decided to put a humeral nail for palliative care in this patient. The risks and benefits of the procedure were discussed with him and he is in agreeance as well as the primary care team. The patient was consented for the procedure after the MRI was done. SURGEON: Damaso Calvillo DO DESCRIPTION OF PROCEDURE: The patient was given a block in the preoperative area by anesthesia and then taken to the operative suite, placed in supine position. LMA was placed and the left arm was prepped and draped in sterile fashion. Timeout was performed. The patient was given 2 grams Ancef. Everyone was in agreeance with correct side, site and patient and the correct procedure. Incision commenced on the lateral acromion. Careful dissection was made down to the deltoid fibers. Deltoid fascia was split and then down to the rotator cuff. Rotator cuff was split in line with the fibers. Starting point was made at that time, just 1 cm posterior to the bicipital groove. Once this was done, several attempts at reduction were made with the cannulated device and this failed. We decided then to open the site of incision made and deltopectoral interval, and careful dissection was made down to the fracture site itself and noted to have a large fibrous type tissue in the fracture site itself. This was removed and the reduction was made. This was also sent for pathology. Once the reduction was made, a guidewire was placed down and the measurement was made for a 200 nail in. A 200 nail was then placed down the humeral shaft and inserted with fluoroscopy to assure that it was in the shaft itself. The jig was put on with the nail and there were 4 proximal screws placed through the nail, through the jig. This was also done under fluoroscopy. Once this was done, the distal locking screw was placed from lateral to medial. After this was done, the wounds were all irrigated thoroughly. The deltoid fascia was closed with 0 Vicryl in a [id number] fashion and then the skin on all the incisions were closed with 2-0 Vicryl in an inverted interrupted fashion and ZipLine were placed over each of the incision. Adaptic, 4 x 4, ABDs were placed over the incisions. The patient was wrapped with an Kin wrap from the hand up to the shoulder and then placed in a sling, then taken to recovery in stable condition. Blood loss was approximately 300 mL. No complications. TRANSINT:[id number] Voice Confirmation ID: [id number] DOCUMENT ID: [id number] OPERATIVE REPORT [id number] ELIOT SOSA,DAMASO Diaz DO at 1547 CC: [id number] DICTATION DATE: 04/11/17 0853 CONSTRUCTION MANAGEMENT ASSISTANT: 04/11/17 1142 ADM IN [facility] [address] [place] [address]
--- NOTE | 2017-04-11 17:43 | NUR ---
OT NOTE: PT COMPLETED SIMPLE GROOMING TASK WITH MOD A. PT ATTEMPTED RUE FM TASK. THANK YOU, NATHANIEL HUTCHINSON/Floresita
[2017-04-11 19:31] LABS: HEMATOCRIT 26.5 % (42.0-54.0); HEMOGLOBIN 8.6 g/dL (13.5-17.5); MCHC 32.5 g/dL (31.0-37.0); MCV 83.1 fL (80.0-100.0); MEAN PLATELET VOLUME 10.2 fL (7.4-10.4); RBC 3.19 10x6/uL (4.20-6.10); WBC 12.4 10x3/uL (4.8-10.8)
[2017-04-11 19:40] LABS: INR 1.36 (0.85-1.17); PROTIME 16.6 SECONDS (11.6-15.0)
[2017-04-11 19:56] VITALS: BP 93/67
--- NOTE | 2017-04-11 20:00 | NUR ---
AROUSES EASILY TO VERBAL STIMULI. NO COMPLAINTS VOICED. AGUSTIN WRAP DRSG INTACT TO LEFT SHOULDER WIHTOUT DRAINAGE NOTED. IV INTACT TO RIGHT FOREARM WITHOUT REDNESS OR EDEMA NOTED.FENTANYL BLOCK IN USE FOR PAIN CONTROL. CL IN REACH. FAMILY AT BEDSIDE.
[2017-04-11 23:56] VITALS: BP 90/52
--- NOTE | 2017-04-12 00:50 | NUR ---
PATIENT RESTING QUIETLY WITH EYES CLOSED. NO SIGNS OF DISTRESS NOTED. PATIENT IS RECIEVING OXYGEN VIA NASAL CANNULA AT 2.5L/MIN. BED IN LOWEST POSITION, CALL LIGHT IN REACH. BED RIALS UP X'S 2. HEAD OF THE BED 40 DEGREES.
[2017-04-12 04:00] VITALS: BP 90/49
[2017-04-12 06:16] LABS: BASOPHILS 0.1 % (0-2); EOSINOPHILS 0.2 % (0-7); HEMATOCRIT 21.7 % (42.0-54.0); IMMATURE GRANULOCYTES 0.2 % (0-5); LYMPHOCYTES 9.4 % (15-50); MCH 26.8 pg (26.0-34.0); MCHC 33.2 g/dL (31.0-37.0); MEAN PLATELET VOLUME 9.7 fL (7.4-10.4); MONOCYTES 11.6 % (2-11); NEUTROPHILS 78.5 % (40-80); PLATELET COUNT 212 10x3/uL (130-400); RBC 2.69 10x6/uL (4.20-6.10); RDW 15.9 % (11.5-14.5); WBC 12.4 10x3/uL (4.8-10.8)
--- NOTE | 2017-04-12 06:17 | NUR ---
AWAKE,NO DISTRESS NOTED. REMAINS NPO. CL IN REACH
[2017-04-12 06:31] LABS: HEMOGLOBIN 7.2 g/dL (13.5-17.5); MCV 80.7 fL (80.0-100.0)
[2017-04-12 07:02] LABS: ANION GAP 12.7 mmol/L (8-16); BILIRUBIN - TOTAL 0.2 mg/dL (0.2-1.3); CALCIUM 7.9 mg/dL (8.5-10.1); CARBON DIOXIDE 23.9 mmol/L (21.0-32.0); PROTEIN - SERUM 5.5 g/dL (6.4-8.2)
[2017-04-12 07:03] LABS: CREATININE - SERUM 1.8 mg/dL (0.6-1.3); POTASSIUM - SERUM 4.6 mmol/L (3.5-5.1)
--- NOTE | 2017-04-12 07:20 | NUR ---
RECEIVED REPORT, ASSUMED CARE OF PT. PT RESTING, EASILY AROUSED, NO NEEDS VOICED AT THIS TIME. R HAND IV INFUSING FLUIDS ORDERED, DRSG C/D/I. R FOREARM WITH HEPARIN GTT ORDERED. L SHOULDER SLING IN PLACE WITH BLOCK. TELEMETRY IN PLACE, SINUS RHYTHM 76 BPM. BED ALARM ON, BED IN LOWEST POSITION, SIDE RAILS UP X 2, CALL LIGHT WITHIN REACH.
[2017-04-12 07:30] LABS: INR 1.55 (0.85-1.17); PROTIME 18.5 SECONDS (11.6-15.0)
--- NOTE | 2017-04-12 08:11 | NUR ---
HEPARIN ON HOLD PER ALBINA FROM BMX RIDER FOR LUNG BIOPSY.
--- NOTE | 2017-04-12 08:23 | NUR ---
CRITICAL LAB CALLED TO [facility], TYPE AND CROSSMATCH, TRANSFUSE 2 U PRBC ORDERED.
[2017-04-12 08:30] VITALS: BP 91/56
[2017-04-12 09:05] LABS: BASOPHILS 0.1 % (0-2); EOSINOPHILS 0.3 % (0-7); HEMATOCRIT 21.1 % (42.0-54.0); IMMATURE GRANULOCYTES 0.4 % (0-5); LYMPHOCYTES 10.2 % (15-50); MCH 26.7 pg (26.0-34.0); MCHC 32.7 g/dL (31.0-37.0); MCV 81.8 fL (80.0-100.0); MEAN PLATELET VOLUME 9.9 fL (7.4-10.4); MONOCYTES 13.7 % (2-11); NEUTROPHILS 75.3 % (40-80); PLATELET COUNT 214 10x3/uL (130-400); RBC 2.58 10x6/uL (4.20-6.10); RDW 15.9 % (11.5-14.5)
[2017-04-12 09:09] LABS: HEMOGLOBIN 6.9 g/dL (13.5-17.5)
--- NOTE | 2017-04-12 10:00 | NUR ---
PT LEFT FLOOR FOR LUNG BIOPSY
--- NOTE | 2017-04-12 11:25 | NUR ---
PT RETURNED TO FLOOR FROM LUNG BIOPSY.
--- NOTE | 2017-04-12 13:10 | NUR ---
1ST UNIT PRBC INFUSION INITIATED. CONSENT ON CHART. PT VSS, WITHOUT S/SX OF ADVERSE REACTION, WILL MONITOR IN ROOM X 15 MINUTES, THEN WILL MONITOR THROUGHOUT TRANSFUSION.
--- NOTE | 2017-04-12 13:15 | NUR ---
OT NOTE: OUT FOR PROCEDURE THIS AM. OMERO ZAMBRANO, OTR/L
--- NOTE | 2017-04-12 13:25 | NUR ---
PT VSS. NO S/SX OF ADVERSE REACTION TO PRBC TRANSFUSION. WILL CONTINUE TO MONITOR
--- NOTE | 2017-04-12 19:29 | NUR ---
OT NOTE: PT COMPLETED BED MOB WITH SBA. PT COMPLETED HYGIENE TASK WITH SBA. THANK YOU, NATHANIEL HUTCHINSON/Floresita
[2017-04-12 20:00] VITALS: BP 98/61
[2017-04-13] VITALS (11 sets, daily range): BP systolic 105–156; BP diastolic 60–83
--- NOTE | 2017-04-13 00:46 | NUR ---
PREMEDS GIVEN. 2ND UNIT PRBC'S INFUSION STARTED 0020. VITALS SIGNS STABLE. VITALS SIGNS REMAINED STABLE AFTER INFUSING 15 MINUTES. INCREASED RATE OF INFUSION. WILL CONTINUE TO MONITOR.
[2017-04-13 04:31] LABS: BASOPHILS 0.1 % (0-2); EOSINOPHILS 0.4 % (0-7); IMMATURE GRANULOCYTES 0.6 % (0-5); LYMPHOCYTES 11.3 % (15-50); MCH 27.7 pg (26.0-34.0); MEAN PLATELET VOLUME 10.2 fL (7.4-10.4); MONOCYTES 9.5 % (2-11); NEUTROPHILS 78.1 % (40-80); PLATELET COUNT 179 10x3/uL (130-400); RDW 15.7 % (11.5-14.5); WBC 13.8 10x3/uL (4.8-10.8)
[2017-04-13 04:32] LABS: HEMATOCRIT 30.3 % (42.0-54.0); MCV 83.9 fL (80.0-100.0); RBC 3.61 10x6/uL (4.20-6.10)
[2017-04-13 04:40] LABS: ANION GAP 10.4 mmol/L (8-16); BILIRUBIN - TOTAL 0.82 mg/dL (0.2-1.3); CALCIUM 8.4 mg/dL (8.5-10.1); CARBON DIOXIDE 27.1 mmol/L (21.0-32.0); CREATININE - SERUM 1.7 mg/dL (0.6-1.3); POTASSIUM - SERUM 4.5 mmol/L (3.5-5.1); PROTEIN - SERUM 6.5 g/dL (6.4-8.2)
[2017-04-13 04:41] LABS: INR 1.46 (0.85-1.17); PROTIME 17.7 SECONDS (11.6-15.0)
[2017-04-13 04:42] LABS: APTT 56.9 SECONDS (22.8-39.4)
--- NOTE | 2017-04-13 06:00 | NUR ---
PT HAD LARGE SOFT STOOL ON BEDPAN. CHANGED PADS AND REPOSITIONED. HOB @ 30 DEGREES. NO OTHER NEEDS. WILL CONTINUE TO MONITOR. LINSEY ALARM ON.
--- NOTE | 2017-04-13 08:00 | NUR ---
ASSESSMENT COMPLETE. R HAND SL. IV TO R FA PATENT. HEPARIN INFUSING AT 11 CC/HR VIA PUMP. DISORIENTED TO TIME,PLACE, AND SITUATION. WANTING TO GO HOME. REFUSING TO EAT BREAKFAST, HAVE VITAL SIGNS TAKEN, OR TAKE AM MEDICATIONS. AGUSTIN WRAP DRESSING IN USE TO L ARM. SLING IN USE TO L ARM. INCONT OF URINE AT TIMES. SCD'S IN USE TO BILAT LEGS. HOSPITAL SUPERVISOR SHOWING ST 110 PER TECH. BLOCK IN USE TO L SHOULDER. LINSEY MAT IN USE.
--- NOTE | 2017-04-13 12:26 | NUR ---
YELLING OUT AND TRYING TO CLIMB OUT OF BED. STATES THAT HE IS GOING HOME TODAY. AGITATED. ATIVAN GIVEN SLOW IVP.
--- NOTE | 2017-04-13 13:00 | NUR ---
BLOCK REMOVED BY DR SOUTH.
--- NOTE | 2017-04-13 13:21 | NUR ---
OT NOTE: ASSISTED PT WITH BED MOB; PT VERY CONFUSED. ABLE TO TOLERATE SITTING ON EDGE OF BED FOR SEVERAL MIN BEFORE ASSISTING BACK TO SUPINE POSITION
--- NOTE | 2017-04-13 13:30 | NUR ---
HEPARIN INFUSION INCREASED TO 12 CC/HR VIA PUMP. PTT ORDERED TO RECHECK AT 1930.
--- NOTE | 2017-04-13 15:00 | NUR ---
RESTING QUIETLY AT THIS TIME.
--- NOTE | 2017-04-13 18:13 | NUR ---
NO CHANGES NOTED AT THIS TIME.
--- NOTE | 2017-04-13 22:45 | NUR ---
PT CONFUSED AND AGITATED. PULLED OFF GOWN AND TELEMETRY. TRYING TO PULL OUT IV'S. ATTEMPTED TO REORIENT AND EXPLAIN IMPORTANCE OF NEEDING IV AND HEPARIN DRIP. PT VERBALLY ABUSIVE AND YELLING OUT. GAVE HALDOL 2 MG IM TO LEFT VENTROGLUTEAL. PT CONTINUES TO CONVERSE WITH UNSEEN OTHERS BUT IS NO LONGER TRYING TO CLIMB OUT OF BED. WILL CONTINUE TO MONITOR.
--- NOTE | 2017-04-14 02:55 | NUR ---
PT AGITATED AGAIN AND COMBATIVE. YELLING THAT HE IS GOING HOME AND IS TRYING TO CLIMB OUT OF BED. GAVE HALDOL 2 MG IM TO LEFT VENTROGLUTEAL. PT STILL YELLING OUT. WILL CONTINUE TO MONITOR. CLOSELY.
[2017-04-14 04:00] VITALS: BP 130/78
[2017-04-14 07:58] LABS: HEMATOCRIT 30.3 % (42.0-54.0); HEMOGLOBIN 10.1 g/dL (13.5-17.5)
[2017-04-14 13:15] VITALS: BP 164/80
--- NOTE | 2017-04-14 15:12 | NUR ---
PATIENT RESTING QUIETLY WITH HIS EYES CLOSED. NO S/S OF DISTRESS NOTED. CALL LIGHT IN PATIENT'S REACH. WILL MONITOR PATIENT.
[2017-04-14 16:33] VITALS: BP 127/68
[2017-04-14 20:00] VITALS: BP 118/77
[2017-04-15 00:18] VITALS: BP 99/65
[2017-04-15 04:34] VITALS: BP 130/60
--- NOTE | 2017-04-15 06:00 | NUR ---
PT PLEASANT AND COOPERATIVE DURING NIGHT. SPEECH IS CLEAR. NO CONFUSION. ASSISTED UP TO BATHROOM TOILET TWICE. LESS INCONTINENT EPISODES THIS NIGHT. GAVE 1 TAB NORCO-5 TWICE FOR LEFT ARM PAIN. COMPLETE ASSESSMENT PER FLOW-SHEET.
[2017-04-15 06:41] LABS: BASOPHILS 0 % (0-2); EOSINOPHILS 0.8 % (0-7); HEMATOCRIT 28.2 % (42.0-54.0); HEMOGLOBIN 9.4 g/dL (13.5-17.5); IMMATURE GRANULOCYTES 0.3 % (0-5); LYMPHOCYTES 10.9 % (15-50); MCH 27.5 pg (26.0-34.0); MCHC 33.3 g/dL (31.0-37.0); MCV 82.5 fL (80.0-100.0); MEAN PLATELET VOLUME 10.6 fL (7.4-10.4); PLATELET COUNT 188 10x3/uL (130-400); RBC 3.42 10x6/uL (4.20-6.10); RDW 15.8 % (11.5-14.5); WBC 11.7 10x3/uL (4.8-10.8)
[2017-04-15 06:52] LABS: ALBUMIN 1.9 g/dL (3.4-5.0); ANION GAP 11.9 mmol/L (8-16); BILIRUBIN - TOTAL 0.52 mg/dL (0.2-1.3); CALCIUM 8.4 mg/dL (8.5-10.1); CARBON DIOXIDE 24.7 mmol/L (21.0-32.0); CREATININE - SERUM 1.4 mg/dL (0.6-1.3); POTASSIUM - SERUM 3.6 mmol/L (3.5-5.1); PROTEIN - SERUM 6.2 g/dL (6.4-8.2)
[2017-04-15 08:43] VITALS: BP 118/66
[2017-04-15 11:51] VITALS: BP 120/70
[2017-04-15 16:49] VITALS: BP 116/72
[2017-04-15 20:00] VITALS: BP 116/52
[2017-04-16] VITALS (7 sets, daily range): BP systolic 111–135; BP diastolic 69–81
[2017-04-16 05:36] LABS: BASOPHILS 0.1 % (0-2); EOSINOPHILS 1.2 % (0-7); HEMATOCRIT 27.8 % (42.0-54.0); HEMOGLOBIN 9.2 g/dL (13.5-17.5); IMMATURE GRANULOCYTES 0.5 % (0-5); LYMPHOCYTES 12.3 % (15-50); MCH 27.7 pg (26.0-34.0); MCHC 33.1 g/dL (31.0-37.0); MCV 83.7 fL (80.0-100.0); MEAN PLATELET VOLUME 10.6 fL (7.4-10.4); MONOCYTES 8.8 % (2-11); NEUTROPHILS 77.1 % (40-80); PLATELET COUNT 178 10x3/uL (130-400); RBC 3.32 10x6/uL (4.20-6.10); RDW 15.7 % (11.5-14.5); WBC 10.3 10x3/uL (4.8-10.8)
--- NOTE | 2017-04-16 06:00 | NUR ---
PT GIVEN BED BATH AND LINEN CHANGE. PTT 118.1 - HOLDING HEPARIN INFUSION 30 MIN AND DECREASE RATE BY 200 UNITS/HR. NEXT PTT WILL BE AT 1220. PT HAD GOOD NIGHT. RESTED WELL AND PLEASANT AND COOPERATIVE ALL NIGHT. RESTING QUIETLY NOW.
[2017-04-16 06:24] LABS: ALBUMIN 1.9 g/dL (3.4-5.0); ANION GAP 12.4 mmol/L (8-16); BILIRUBIN - TOTAL 0.4 mg/dL (0.2-1.3); CALCIUM 8.8 mg/dL (8.5-10.1); CARBON DIOXIDE 25.1 mmol/L (21.0-32.0); CREATININE - SERUM 1.4 mg/dL (0.6-1.3); POTASSIUM - SERUM 3.5 mmol/L (3.5-5.1)
--- NOTE | 2017-04-16 11:48 | NUR ---
OT NOTE: PERFORMED BED MOB WITH MOD ASSIST; STATIC SITTING ON EDGE OF BED WITH GOOD BALANCE. SIT TO STAND WITH MOD ASSIST WITH NON USAGE OF L UE. PT ABLE TO PERFORM FINGER FLEX/EXT WITH INSTRUCTION. FEEDING WITH SET UP; MAX ASSIST TO WASH HANDS AND FACE WITH CLOTH; MAX ASSIST TO ZULY CLEAN GOWN. WILL CONT WITH ADL RE TRAINING. OMERO ZAMBRANO, OTR/L
--- NOTE | 2017-04-16 12:30 | NUR ---
PT K+ IS 3.4 STARTED PT ON K+ RIDER, WILL CONTINUE TO MONITOR, PT STILL VERY CONFUSED TO HOW LONG HE'S BEEN IN HOSPITAL, CONTINUES TO VERBALIZE READY TO GO HOME. REORIENT PT TO PLACE AND TIME
--- NOTE | 2017-04-16 12:58 | NUR ---
PT POTASSIUM REDRAW WAS STILL AT 3.4. STARTED K+ 10MEQ RIDERS
--- NOTE | 2017-04-16 15:03 | NUR ---
CM REASSESSMENT NOTE: TALKED WITH PATIENTS BROTHER (SARBJIT DIEGO) AND HE SIGNED THE JOSE FORM FOR [facility]. REFERRAL HAS BEEN SENT. SARBJIT DIEGO- [phone] [facility] [phone] FAX [phone]
--- NOTE | 2017-04-16 19:40 | NUR ---
SEEMS CONFUSED, STATES HE IS READY TO GO HOME, DENIES NEEDS, CALL LIGHT IN REACH, BED LOWEST POSITION, SIDE RAILS UP X2, HOB 30 DEGREES, DENIES NEEDS, WILL CONTINUE TO MONITOR
--- NOTE | 2017-04-16 21:35 | NUR ---
SLEEPING, NO DISTRESS NOTED, BED LOWEST POSIITON, CALL LIGHT IN REACH, WILL CONTINUE TO MONITOR
--- NOTE | 2017-04-17 00:05 | NUR ---
BANDAGE TO LEFT ARM BANDAGE REMOVED, INCISION CLEANED DRIED AND NEW BANDAGE PLACED, SLING OFF AT THIS TIME
--- NOTE | 2017-04-17 00:29 | NUR ---
PT RESTING WITH EYES CLOSED, BLANKETS UP OVER HEAD. RESPIRATIONS EQUAL AND UNLABORED. CALL LIGHT IN REACH, BED IN LOWEST POSITION.
[2017-04-17 04:00] VITALS: BP 136/76
--- NOTE | 2017-04-17 05:04 | NUR ---
SLEEPING, NO DISTRESS NOTED, CALL LIGHT IN REACH
[2017-04-17 06:28] LABS: BASOPHILS 0 % (0-2); EOSINOPHILS 1.3 % (0-7); HEMATOCRIT 28.7 % (42.0-54.0); HEMOGLOBIN 9.5 g/dL (13.5-17.5); IMMATURE GRANULOCYTES 0.2 % (0-5); LYMPHOCYTES 9.7 % (15-50); MCH 27.9 pg (26.0-34.0); MCHC 33.1 g/dL (31.0-37.0); MCV 84.2 fL (80.0-100.0); MONOCYTES 8.8 % (2-11); PLATELET COUNT 189 10x3/uL (130-400); RBC 3.41 10x6/uL (4.20-6.10); RDW 15.8 % (11.5-14.5); WBC 10.7 10x3/uL (4.8-10.8)
[2017-04-17 07:07] LABS: ANION GAP 12.7 mmol/L (8-16); BILIRUBIN - TOTAL 0.5 mg/dL (0.2-1.3); CALCIUM 9.1 mg/dL (8.5-10.1); CARBON DIOXIDE 24.2 mmol/L (21.0-32.0); CREATININE - SERUM 1.2 mg/dL (0.6-1.3); POTASSIUM - SERUM 3.9 mmol/L (3.5-5.1); PROTEIN - SERUM 6.4 g/dL (6.4-8.2)
[2017-04-17 08:15] VITALS: BP 130/74
--- NOTE | 2017-04-17 08:30 | NUR ---
PT PULLED UP IN BED AND ASSISTED WITH BREAKFAST. HE TOLERATED DIET WELL. HE DRANK HIS COFFEE. DRANK 2 ORANGE JUICES AND ATE 80 % OF HIS BREAKFAST. HE OFFERS NO COMPLaiNTS AT THIS TIME.
[2017-04-17 11:57] VITALS: BP 119/71
--- NOTE | 2017-04-17 13:39 | NUR ---
NUTRITION F/U CHART REVIEWED. NURSING REPORTS GOOD PO INTAKE BREAKFAST. NO INTAKE RECORDED AT LUNCH. WILL CONTINUE TO PROVIDE DIET, MONITOR PO INTAKE. RD FOLLOWING
--- NOTE | 2017-04-17 13:47 | NUR ---
OT NOTE: PT UP IN CHAIR. REMAINS CONFUSED AND DISORIENTED SECONDARY TO DEMENTIA; SPEECH UNCLEAR. ATTEMPTED GROOMING TASKS WITH WASH CLOTH WITH SET UP AND VC. RETROGRADE MASSAGE TO L HAND FOLLOWED BY FINGER FLEX/EXT EXS. ELEVATED L UE ON PILLOW TO HELP WITH EDEMA. LATER PT REQUESTING TO GO TO BATHROOM. ABLE TO AMB WITH SHOE SHINER TO BATHROOM; PT CLEANED AND ASSISTED BACK TO BED. BED MOB WITH MIN ASSIST TO GET LEGS INTO BED. ELEVATED L UE ON PILLOW WHILE IN BED. WILL BEGIN PROM EXS FOLLOWING ORDER FROM PHYSICIAN.
--- NOTE | 2017-04-17 15:35 | NUR ---
PT IS RESTING IN BED. GEODON GIVEN PO. PT REQUESTED TO URINATE. USED URINAL. VOIDED 300 CC.
--- NOTE | 2017-04-17 16:03 | NUR ---
PT WAS PULLED UP IN BED. HE STATES HE IS COLD SO I GAVE HIM ANOTHER BLANKET AND TUCKED HIM IN. HE STATES THAT HE IS HUNGRY. OFFERED HIM PUDDING. HE WOULD LIKE CHOCOLATE. I FED HIM 2 PUDDINGS. HE ENJOYED THIS VERY MUCH.
[2017-04-17 16:51] VITALS: BP 124/75
--- NOTE | 2017-04-17 17:16 | NUR ---
PT IS RESTING. HE OFFERS NO COMPLAINTS. BED IS LOW, SIDE RAILS UP X 2 AND CALL LIGHT IN REACH.
--- NOTE | 2017-04-17 17:25 | NUR ---
PT'S DINNER SERVED. GOT HIS PLATE READY AND SPAGHETTI CUT UP. PT IS FEEDING HIMSELF AND DOING WELL. I TOLD HIM I WILL CHECK BACK ON HIM IN A MINUTE TO SEE IF HE NEEDS HELP.
--- NOTE | 2017-04-17 18:20 | NUR ---
PT IS RESTING IN BED. HE OFFERS NO COMPLAINTS. HE IS EATING A PIECE OF HALLOWEEN CANDY AND STATES HE WANTS MORE. I DONT KNOW WHERE HE GOT THE CANDY. BED IS LOW, SIDE RAILS UP X 2. CALL LIGHT IN REACH.
--- NOTE | 2017-04-17 19:59 | NUR ---
PT SEEN AND ASSESSED. NO COMPLAINTS AT PRESENT. LEFT ARM VERY SWOLLEN AND PLACED ON PILLOW FOR ELEVATION. ABLE TO MOVE FINGERS LEFT HAND-DRESSING TO LEFT SHOULDER CLEAN DRY AND INTACT. HEPARIN DRIP RUNNING AT 12CC/HR-PTT IN AM.FALL PRECAUTIONS IN PLACE TO INCLUDE YELLOW [place], NON SKID SOCKS, AND LINSEY MAT ACTIVATED. CALL LIGHT IN REACH. NO NEEDS AT THIS TIME
[2017-04-17 21:30] VITALS: BP 117/65
[2017-04-18 00:26] VITALS: BP 136/73
[2017-04-18 04:44] VITALS: BP 122/71
[2017-04-18 05:30] LABS: BASOPHILS 0 % (0-2); EOSINOPHILS 1.1 % (0-7); HEMATOCRIT 28.1 % (42.0-54.0); HEMOGLOBIN 9.4 g/dL (13.5-17.5); IMMATURE GRANULOCYTES 0.4 % (0-5); MCHC 33.5 g/dL (31.0-37.0); MCV 83.6 fL (80.0-100.0); MEAN PLATELET VOLUME 10.7 fL (7.4-10.4); MONOCYTES 8.1 % (2-11); NEUTROPHILS 78.4 % (40-80); PLATELET COUNT 174 10x3/uL (130-400); RBC 3.36 10x6/uL (4.20-6.10); RDW 15.5 % (11.5-14.5); WBC 11.4 10x3/uL (4.8-10.8)
[2017-04-18 05:43] LABS: ANION GAP 11.9 mmol/L (8-16); BILIRUBIN - TOTAL 0.4 mg/dL (0.2-1.3); CALCIUM 8.9 mg/dL (8.5-10.1); CARBON DIOXIDE 25.9 mmol/L (21.0-32.0); CREATININE - SERUM 1.2 mg/dL (0.6-1.3); POTASSIUM - SERUM 3.8 mmol/L (3.5-5.1); PROTEIN - SERUM 5.9 g/dL (6.4-8.2)
--- NOTE | 2017-04-18 07:45 | NUR ---
PT IS RECEIVED LYING IN BED THIS AM. HE OFFERS NO COMPLAINTS. HE IS READY FOR BREAKFAST. HE IS NOT HAVING PAIN AT THIS TIME. GEN- AWAKE AND ALERT. LUNGS- WITH WHEEZING BILATERALLY. HEART- RRR. ABD- SOFT, NT. BS+ EXT. LEFT SHOULDER WITH A POST OP DRESSING NOTED. HIS LEFT LOWER ARM AND HAND AR BOTH WITH 3+ EDEMA. PULSE PALPABLE AND FEELING IS GOOD IN HAND AND ARM. IV PATENT LEFT HAND AND SALINE LOCK IS PATENT LEFT HAND. BED IS LOW, SIDE RAILS UP X 2 AND CALL LIGHT IN REACH.
[2017-04-18 08:06] VITALS: BP 130/73
--- NOTE | 2017-04-18 09:45 | NUR ---
PT IS UP TO CHAIR. PHYSICAL THERAPY ASSISTED PT UP TO CHAIR. HE IS TOLERATING WELL.
--- NOTE | 2017-04-18 10:45 | NUR ---
PT IS SITTING UP IN CHAIR. TOOK PT BETZAIDA CRACKERS AND PEANUT BUTTER. PHYSICAL AND SPEECH THERAPY ARE HERE TO SEE PT.
[2017-04-18] MEDS ORDERED: THIAMINE HCL50 MG PO (11:00)
[2017-04-18] MEDS ORDERED: IPRAT-ALBUT 0.5-3 ML UPD (11:00)
[2017-04-18] MEDS ORDERED: ELIQUIS5 MG PO (11:00)
[2017-04-18] MEDS ORDERED: NICODERM C1 PATCH .1 TRANSDERM (11:00)
[2017-04-18] MEDS ORDERED: HYDROCODON-ACE1 EAC7 PO (11:02)
--- NOTE | 2017-04-18 11:22 | NUR ---
FED PT SOME CHOCOLATE PUDDING. HE TOLERATED THIS WELL.
--- NOTE | 2017-04-18 12:27 | NUR ---
CM REASSESSMENT NOTE: PATIENT IS DISCHARGING TO [facility] BY FACILITY VAN TO A SKILLED BED.
--- NOTE | 2017-04-18 12:33 | NUR ---
PT SITTING UP IN CHAIR THIS AM. STARTED PROM EXS TO L SHOULDER.. VERY DIFFICULT FOR PT TO RELAX DURING PROM. L UE REMAINS VERY EDEMATOUS..ALSO PERFORMED AROM FINGER FLEX/EXT AND WRIST FLEX/EXT. A/AROM FOR ELBOW FLEX/EXT. PT ABLE TO PERFORM GROOMING AND FEEDING WITH R HAND WITH SET UP AND VC. PT DOING WELL.. NO PAIN REPORTED DURING PROM
--- NOTE | 2017-04-18 13:00 | NUR ---
PT WAS ASSISTED WITH DRESSING. HE IS NOW LYING IN BED SLEEPING. SIDE RAILS UP X 2 AND CALL LIGHT IN REACH.
--- NOTE | 2017-04-18 13:45 | NUR ---
PT'S RIDE IS HERE TO GET HIM TO TAKE HIM TO [facility]. DISCHARGE INSTRUCTIONS DISCUSSED WITH CAREGIVER. GAVE REPORT TO RI ANS ALSO SENT A COPY OF HIS MED REC. PT WAS TRANSPORTED TO HIS RIDE BY WHEELCHAIR.
== END 2017-04-18 14:30 | DRG 492 ==
LOC: D.ER 17:57 → D.MS 20:53 → OBSVTIME 20:53 → D.MS 04-08 17:00
PROVIDERS: Anesthesiology; Family Medicine; Orthopaedic Surgery; ADMIT Family Medicine
PROC: 0PHD36Z Insertion of Intramedullary Internal Fixation Device into Left Humeral Head, Percutaneous Approach (ICD-10-PCS; principal; 2017-04-11 06:00)
PROC: 0BBL3ZX Excision of Left Lung, Percutaneous Approach, Diagnostic (ICD-10-PCS; 2017-04-12)
DX: S42.202A Unspecified fracture of upper end of left humerus, initial encounter for closed fracture (principal); I26.99 Other pulmonary embolism without acute cor pulmonale; C34.92 Malignant neoplasm of unspecified part of left bronchus or lung; I82.C12 Acute embolism and thrombosis of left internal jugular vein; E87.0 Hyperosmolality and hypernatremia; N17.9 Acute kidney failure, unspecified; F17.203 Nicotine dependence unspecified, with withdrawal; J91.0 Malignant pleural effusion; J98.11 Atelectasis; I82.B12 Acute embolism and thrombosis of left subclavian vein; I82.A12 Acute embolism and thrombosis of left axillary vein; F02.81 Dementia in other diseases classified elsewhere, unspecified severity, with behavioral disturbance; D62 Acute posthemorrhagic anemia; X58.XXXA Exposure to other specified factors, initial encounter; N40.1 Benign prostatic hyperplasia with lower urinary tract symptoms; R31.9 Hematuria, unspecified; G30.9 Alzheimer's disease, unspecified; K21.9 Gastro-esophageal reflux disease without esophagitis; I25.10 Atherosclerotic heart disease of native coronary artery without angina pectoris; F10.10 Alcohol abuse, uncomplicated; J44.9 Chronic obstructive pulmonary disease, unspecified; E87.6 Hypokalemia; D50.9 Iron deficiency anemia, unspecified

== ENCOUNTER 2017-05-30 09:40 | Inpatient (IN) | payer OTHER ==
[~2017-05-30] VITALS: Ht 177.8 cm; Wt 77.3 kg
[~2017-05-30 09:40] MED LIST changes: +AUGMENTIN 875-11 TAB PO; +CIPRO500 MG PO; +ELIQUIS5 MG PO; +HYDROCODON-ACE1 EAC7 PO; +IPRAT-ALBUT 0.5-3 ML UPD; +NICODERM C1 PATCH .1 TRANSDERM; +THIAMINE HCL50 MG PO
[2017-05-30 11:33] LABS: APPEARANCE CLEAR (CLEAR); BILIRUBIN NEGATIVE (NEGATIVE); COLOR STRAW (YELLOW); GLUCOSE NEGATIVE (NEGATIVE); KETONE NEGATIVE (NEGATIVE); NITRITE NEGATIVE (NEGATIVE); PROTEIN NEGATIVE (NEGATIVE); SPECIFIC GRAVITY 1.005 (1.005-1.020); UROBILINOGEN NORMAL (NORMAL)
[2017-05-30 11:38] LABS: ALBUMIN 2.7 g/dL (3.4-5.0); ANION GAP 12.1 mmol/L (8-16); BILIRUBIN - TOTAL 0.14 mg/dL (0.2-1.3); CALCIUM 9.5 mg/dL (8.5-10.1); CARBON DIOXIDE 28.5 mmol/L (21.0-32.0); CREATININE - SERUM 1.9 mg/dL (0.6-1.3); MAGNESIUM - SERUM 2.8 mg/dL (1.8-2.4); POTASSIUM - SERUM 5.6 mmol/L (3.5-5.1); PROTEIN - SERUM 7.6 g/dL (6.4-8.2)
[2017-05-30 11:49] LABS: BASOPHILS 0 % (0-2); EOSINOPHILS 0 % (0-7); HEMATOCRIT 32.1 % (42.0-54.0); HEMOGLOBIN 10.4 g/dL (13.5-17.5); IMMATURE GRANULOCYTES 0.1 % (0-5); LYMPHOCYTES 5.8 % (15-50); MCH 26.1 pg (26.0-34.0); MCHC 32.4 g/dL (31.0-37.0); MCV 80.7 fL (80.0-100.0); MONOCYTES 5.8 % (2-11); NEUTROPHILS 88.3 % (40-80); RBC 3.98 10x6/uL (4.20-6.10); RDW 18.2 % (11.5-14.5); WBC 10.8 10x3/uL (4.8-10.8)
[2017-05-30 11:58] LABS: PLATELET COUNT 59 10x3/uL (130-400)
[2017-05-30 12:38] LABS: PLATELET ESTIMATE DECREASED
[2017-05-30 16:57] VITALS: BP 139/75; BMI 24.4
[2017-05-30 21:03] VITALS: BP 93/68
[2017-05-31 00:37] VITALS: BP 86/56
--- NOTE | 2017-05-31 01:30 | NUR ---
PATIENT IS RESTING QUIETLY WITH EYES CLOSED, C-PAP ON. BROTHER IN RECLINER AT BEDSIDE. BROTHER DENIES NEEDS AT THIS TIME.
[2017-05-31 05:00] VITALS: BP 80/54
[2017-05-31 07:02] LABS: INR 1.36 (0.85-1.17); PROTIME 16.3 SECONDS (11.6-15.0)
[2017-05-31 08:22] VITALS: BP 95/60
--- NOTE | 2017-05-31 09:18 | NUR ---
UPON ASSESSMENT, PATIENT NOT RESPONDING TO VERBAL STIMULI BUT PATIENT SLIGHTLY RESPONSIVE TO TOUCH WHICH IS CONSISTENT WITH REPORT FROM PREVIOUS SHIFT. PATIENT UNABLE TO TAKE MEDICATIONS AT THIS TIME DUE TO RESPONSIVENESS.
[2017-05-31 10:11] VITALS: Ht 177.8 cm; Wt 77.3 kg
[2017-05-31 11:53] VITALS: BP 78/52
== END 2017-05-31 15:58 | disposition hospice, inpatient (51) | DRG 189 ==
LOC: D.ER 09:40 → D.MS 12:25
PROVIDERS: Emergency Medicine; Nurse Practitioner Family; ADMIT Legal Medicine
PROC: 0T9B70Z Drainage of Bladder with Drainage Device, Via Natural or Artificial Opening (ICD-10-PCS; principal; 2017-05-30)
DX: J96.90 Respiratory failure, unspecified, unspecified whether with hypoxia or hypercapnia (principal); E87.2 Acidosis; Z66 Do not resuscitate; G30.9 Alzheimer's disease, unspecified; F02.80 Dementia in other diseases classified elsewhere, unspecified severity, without behavioral disturbance, psychotic disturbance, mood disturbance, and anxiety; E86.0 Dehydration; D64.9 Anemia, unspecified; E87.5 Hyperkalemia

== ENCOUNTER 2017-05-31 15:19 | Inpatient (IN) | payer OTHER ==
[~2017-05-31] VITALS: Ht 177.8 cm; Wt 77.7 kg
[2017-05-31 20:00] VITALS: BP 128/80
--- NOTE | 2017-06-01 05:34 | NUR ---
ASSESSED, PT WAS A SLEEP AND RESTING QUIET WITH O2 AT 2 LITERS. THE BED IS LOW, WITH TWO RAILS UP AND THE CALL LIGHT IN HIS HAND.
[2017-06-01 08:18] VITALS: BP 75/47
--- NOTE | 2017-06-01 13:47 | NUR ---
PT HAD BEEN PAIN FREE THIS SHIFT ACCORDING TO FLACC SCALE. HAS BEEN TURNED EVERY 2 HOURS. FAMILY HAS BEEN HERE THIS AM. CALL LIGHT IN REACH
--- NOTE | 2017-06-01 19:56 | NUR ---
RESTING, NO DISTRESS NOTED, RESPIRATIONS 16, 15L OXIMIZER, WILL CONTINUE TO MONITOR
[2017-06-01 20:00] VITALS: BP 67/42
--- NOTE | 2017-06-02 01:39 | NUR ---
NO DISTRESS NOTED, BREATHING SHALLOW, RESPIRATIONS 20, WILL CONTINUE TO MONITOR
[2017-06-02 03:57] VITALS: BP 128/80; Ht 177.8 cm; Wt 77.7 kg
--- NOTE | 2017-06-02 04:39 | NUR ---
ASSESSED, PT IS RESTING QUIET WITH POOR RESPIRATIONS. O2 IN PLACE AND CPAP IS NOT ON AT THIS TIME. THE BED IS LOW, RAILS UP X'S 2 WITH THE CALL LIGHT AT HAND.
--- NOTE | 2017-06-02 04:42 | NUR ---
ASSESSED, PT IS RESTING QUIET WITH NO CPAP ON AT THIS TIME. HE REMAINS ON O2 PER N/C AND HIS RESPIRATIONS ARE A LITTLE IRREGULAR. THE BED IS LOW, RAILS UP X'S 2 WITH THE CALL LIGHT AT HAND.
--- NOTE | 2017-06-02 07:00 | NUR ---
PT REC'D FROM [facility]. RESTING IN BED WITH EYES CLOSED. SOMNELENT. PIV TO R THUMB FREE OF REDNESS AND SWELLING. NO SIGNS OF DISTRESS. BED LOW. CPOC.
[2017-06-02 08:56] VITALS: BP 50/30
--- NOTE | 2017-06-02 15:42 | NUR ---
PT RESTING IN BED DENIES NEEDS.
--- NOTE | 2017-06-02 15:56 | NUR ---
1215: NOTIFIED BY FAMILY THAT PT HAD . UNABLE TO PALPATE PERIPHERAL PULSES. NO APICAL PULSE AUSCULTATED. 1230: [facility] NOTIFIED 1234: DR. WOOD NOTIFIED 1235: REQUESTED ER DOCTOR TO COME PRONOUNCE 1251: [facility] ARRIVED. 1311: DR. WOODARD ON FLOOR TO PRONOUNCE AND SPOKE WITH DR. WOOD'S NURSE. 1315: [facility] NOTIFIED. PT DENIED. 1320: [employer] [facility] NOTIFIED. 1350: HOME HERE TO RECIEVE PT.
== END 2017-06-02 16:01 | DRG 189 ==
LOC: D.MS 15:19
PROVIDERS: ADMIT Legal Medicine
DX: J96.92 Respiratory failure, unspecified with hypercapnia (principal); Z66 Do not resuscitate; Z51.5 Encounter for palliative care